=== PATIENT | male | born 1940 | race Caucasian/White ===

== ENCOUNTER 2016-09-18 09:39 | Emergency (ER) | payer MEDICARE, OTHER ==
--- NOTE | 2016-09-18 10:25 | ED ---
General Adult HPI - General Chief complaint: Upper Respiratory Infection Stated complaint: FLU LIKE SYMPTOMS Time Seen by Provider: 09/18/16 10:13 Source: patient, RN notes reviewed Mode of arrival: ambulatory Limitations: no limitations - History of Present Illness Initial comments: 76-year-old male present emergency department with chief complaint cough and congestion 2-3 days. Patient states he has sinus congestion or cough worse at nighttime. Patient states he has asthma but no increased shortness of breath. Denies any chest pain, fever or chills. Patient did not have flu vaccine this year. Patient denies any [id number] medications. Patient states that he' s had no sick contacts. He states that he was just concerned that his have a cold last couple days and that is having around people. - Related Data Home Medications Medication Instructions Recorded Confirmed Allopurinol [Zyloprim] 300 mg PO DAILY 11/30/14 09/18/16 Atenolol [Tenormin] 25 mg PO BID 11/30/14 09/18/16 Furosemide [Lasix] 40 mg PO DAILY 11/30/14 09/18/16 Isosorbide Mononitrate [Isosorbide 30 mg PO BID 11/30/14 09/18/16 Mononitrate ER] Lisinopril [Zestril] 5 mg PO DAILY 11/30/14 09/18/16 Potassium Chloride ER [K-Dur 10] 10 meq PO DAILY 11/30/14 09/18/16 Tamsulosin [Flomax] 0.4 mg PO DAILY 11/30/14 09/18/16 Finasteride [Proscar] 5 mg PO DAILY 09/18/16 09/18/16 Levothyroxine Sodium [Synthroid] 112 mcg PO DAILY 09/18/16 09/18/16 Previous Rx's Medication Instructions Recorded Azithromycin [Zithromax Z-pack] 0 mg PO DIRECTED #1 pack 09/18/16 Allergies Allergy/AdvReac Type Severity Reaction Status Date / Time Penicillins Allergy Unknown Verified 09/18/16 10:34 Review of Systems ROS Statement: Those systems with pertinent positive or pertinent negative responses have been documented in the HPI. ROS Other: All systems not noted in ROS Statement are negative. Past Medical History Past Medical History: Coronary Artery Disease (CAD), Hypertension, Myocardial Infarction ([place]), Thyroid Disorder History of Any Multi-Drug Resistant Organisms: None Reported Past Surgical History: Coronary Bypass/CABG Additional Past Surgical History / Comment(s): thyroid cancer removed Past Psychological History: Depression Smoking Status: Former smoker Past Alcohol Use History: None Reported Past Drug Use History: None Reported General Exam Limitations: no limitations General appearance: alert, in no apparent distress Head exam: Present: atraumatic, normocephalic, normal inspection Eye exam: Present: normal appearance, PERRL, EOMI. Absent: scleral icterus, conjunctival injection, periorbital swelling ENT exam: Present: mucous membranes dry, mucous membranes moist, TM's normal bilaterally, normal external ear exam. Absent: normal exam (Mild rhinorrhea), normal oropharynx (Some postnasal drainage noted) Neck exam: Present: normal inspection, full ROM. Absent: tenderness, meningismus, lymphadenopathy Respiratory exam: Present: normal lung sounds bilaterally. Absent: respiratory distress, wheezes, rales, rhonchi, stridor Cardiovascular Exam: Present: regular rate, normal rhythm, normal heart sounds. Absent: systolic murmur, diastolic murmur, rubs, gallop, clicks Neurological exam: Present: alert Skin exam: Present: warm, dry, intact, normal color. Absent: rash Course Vital Signs 09/18/16 09:53 Temperature 98.8 F Pulse Rate 67 Respiratory 20 Rate Blood Pressure 147/65 O2 Sat by Pulse 95 Oximetry Medical Decision Making - Medical Decision Making 76-year-old male present emergency department for cough and congestion. Patient 's chest x-ray shows acute bronchitis. Patient was placed on antibiotics at this time. Patient was given strict return parameters patient agreed to plan. - Lab Data Lab Results 09/18/16 Range/Units 10:27 Influenza Type A RNA Not Detected (Not Detectd) Influenza Type B (PCR) Not Detected (Not Detectd) Disposition Clinical Impression: Bronchitis, Sinus congestion Disposition: HOME SELF-CARE Condition: Stable Instructions: Acute Bronchitis (ED) Additional Instructions: Please return to the Emergency Department if symptoms worsen or any other concerns. Prescriptions: Azithromycin [Zithromax Z-pack] 0 mg PO DIRECTED #1 pack Time of Disposition: 11:21
--- NOTE | 2016-09-18 10:50 | XR ---
EXAMINATION TYPE: XR chest 2V DATE OF EXAM: 09/18/2016 10:39 AM COMPARISON: Prior chest x-ray November HISTORY: Cough and congestion, asthma TECHNIQUE: Frontal and lateral views of the chest are obtained. FINDINGS: There is no focal air space opacity, pleural effusion, or pneumothorax seen. Patchy basil ar density again noted and likely represents scarring as on prior. There is bronchial wall thickening . The cardiac silhouette size is stable and borderline enlarged. Prominent lung volumes suggest under lying COPD, blunting of the costophrenic angles is stable and may be due to hyperinflation. The osseo us structures are intact. IMPRESSION: Correlate for bronchitis. Follow-up as indicated.
[2016-09-18 11:39] VITALS: BP 142/65; PULSE 61; RESP 18; TEMP 96.7
== END 2016-09-18 11:46 | disposition home or self-care (01) ==
LOC: EC 09:39
DX: J20.9 Acute bronchitis, unspecified (principal); R09.81 Nasal congestion; I10 Essential (primary) hypertension; I25.10 Atherosclerotic heart disease of native coronary artery without angina pectoris; E07.9 Disorder of thyroid, unspecified; Z87.891 Personal history of nicotine dependence; Z79.899 Other long term (current) drug therapy; Z88.0 Allergy status to penicillin
CPT/HCPCS: 71020; 87502; 99283

== ENCOUNTER 2016-10-19 17:43 | Emergency (ER) | payer MEDICARE, OTHER ==
[2016-10-19 18:17] VITALS: BP 164/70; PULSE 74; RESP 18; TEMP 97.8
--- NOTE | 2016-10-19 18:25 | ED ---
General Adult HPI - General Chief complaint: Wound/Laceration Stated complaint: left arm bleeding, post op Time Seen by Provider: 10/19/16 18:17 Source: patient, RN notes reviewed Mode of arrival: wheelchair Limitations: no limitations - History of Present Illness Initial comments: 76-year-old male presents to the emergency Department chief complaint of skin tear to left wrist. Patient states when they were removing the tape in the IV to treat his skin tear to his left wrist. Patient states that he noticed some bleeding C thought that he should be evaluated. Patient denies any pain any passing redness surrounding the area. Patient states that he did not know how to care for it so he thought that he should be seen.Patient denies any recent fever, chills, shortness of breath, chest pain, back pain, abdominal pain, nausea vomiting, numbness or tingling, dysuria or hematuria, constipation or diarrhea, headaches or visual changes, or any other current symptoms. - Related Data Home Medications Medication Instructions Recorded Confirmed Allopurinol [Zyloprim] 300 mg PO DAILY 11/30/14 09/18/16 Atenolol [Tenormin] 25 mg PO BID 11/30/14 09/18/16 Furosemide [Lasix] 40 mg PO DAILY 11/30/14 09/18/16 Isosorbide Mononitrate [Isosorbide 30 mg PO BID 11/30/14 09/18/16 Mononitrate ER] Lisinopril [Zestril] 5 mg PO DAILY 11/30/14 09/18/16 Potassium Chloride ER [K-Dur 10] 10 meq PO DAILY 11/30/14 09/18/16 Tamsulosin [Flomax] 0.4 mg PO DAILY 11/30/14 09/18/16 Finasteride [Proscar] 5 mg PO DAILY 09/18/16 09/18/16 Levothyroxine Sodium [Synthroid] 112 mcg PO DAILY 09/18/16 09/18/16 Previous Rx's Medication Instructions Recorded Azithromycin [Zithromax Z-pack] 0 mg PO DIRECTED #1 pack 09/18/16 Allergies Allergy/AdvReac Type Severity Reaction Status Date / Time Penicillins Allergy Unknown Verified 10/19/16 17:48 Review of Systems ROS Statement: Those systems with pertinent positive or pertinent negative responses have been documented in the HPI. ROS Other: All systems not noted in ROS Statement are negative. Past Medical History Past Medical History: Coronary Artery Disease (CAD), Hypertension, Myocardial Infarction ([place]), Thyroid Disorder History of Any Multi-Drug Resistant Organisms: None Reported Past Surgical History: Coronary Bypass/CABG Additional Past Surgical History / Comment(s): thyroid cancer removed Past Psychological History: Depression Smoking Status: Former smoker Past Alcohol Use History: None Reported Past Drug Use History: None Reported General Exam Limitations: no limitations General appearance: alert, in no apparent distress Respiratory exam: Present: normal lung sounds bilaterally. Absent: respiratory distress, wheezes, rales, rhonchi, stridor Cardiovascular Exam: Present: regular rate, normal rhythm, normal heart sounds. Absent: systolic murmur, diastolic murmur, rubs, gallop, clicks Extremities exam: Present: normal inspection Neurological exam: Present: alert, oriented X3 Psychiatric exam: Present: normal affect, normal mood Skin exam: Present: warm, dry, other (She appears to have a 3 cm half [place]- type skin tear. There does not appear any signs of infection no active bleeding at this time.) Course Vital Signs 10/19/16 10/19/16 17:46 18:16 Temperature 98.1 F 97.8 F Pulse Rate 88 74 Respiratory 20 18 Rate Blood Pressure 139/65 164/70 O2 Sat by Pulse 98 97 Oximetry Medical Decision Making - Medical Decision Making 76-year-old male presents for skin tear to the left wrist. This time we did take the Tegaderm over the area. We did discuss what to watch for we did discuss care we did discuss alternate discussed return parameters. We discussed all the patient's questions. He stated he understood and is in agreement with plan. He will be discharged home. Disposition Clinical Impression: Tear of skin of left wrist Disposition: HOME SELF-CARE Condition: Stable Instructions: Skin Tear (ED) Additional Instructions: Please use medication as discussed. Please follow up with family doctor if symptoms have not improved over the next two days. Please return to the emergency room if your symptoms increase or worsen or for any other concerns. Referrals: Daniel Avila MD [Primary Care Provider] - 1-2 days Time of Disposition: 18:25
== END 2016-10-19 18:31 | disposition home or self-care (01) ==
LOC: EC 17:43
DX: S61.512A Laceration without foreign body of left wrist, initial encounter (principal); I25.10 Atherosclerotic heart disease of native coronary artery without angina pectoris; I10 Essential (primary) hypertension; I25.2 Old myocardial infarction; F32.9 Major depressive disorder, single episode, unspecified; Z87.891 Personal history of nicotine dependence; Z79.899 Other long term (current) drug therapy; Z88.0 Allergy status to penicillin; W45.8XXA Other foreign body or object entering through skin, initial encounter; Y83.8 Other surgical procedures as the cause of abnormal reaction of the patient, or of later complication, without mention of misadventure at the time of the procedure; Y92.009 Unspecified place in unspecified non-institutional (private) residence as the place of occurrence of the external cause
CPT/HCPCS: 99283

== ENCOUNTER 2016-10-20 16:54 | Emergency (ER) | payer MEDICARE, OTHER ==
[2016-10-20 17:12] VITALS: BP 120/57; PULSE 69; RESP 20; TEMP 98.6
[2016-10-20] MEDS ORDERED: TOPICAL SKIN ADHESIVE 1 EACH AMP TOPICAL ONE (17:27)
[2016-10-20] MEDS ORDERED: GELATIN SPONGE,ABSORB (SMALL) 1 EACH SPONGE TOPICAL STA (17:28)
--- NOTE | 2016-10-20 17:38 | ED ---
Wound/Laceration HPI - General Chief Complaint: Wound/Laceration Stated Complaint: Post Surgical Wound Still Bleeding Time Seen by Provider: 10/20/16 17:22 Source: patient, RN notes reviewed Mode of arrival: ambulatory Limitations: no limitations - History of Present Illness Initial Comments: Is a 68-year-old male presents emergency Department with chief complaint of a skin tear on his left forearm. Patient reports that he had an IV and the IV was removed and the cause a skin tear. Patient states that he was here yesterday and he placed a Tegaderm. Patient is concerned because there is been bleeding through the Tegaderm. Patient denies any fever or chills or any other associated symptoms. Patient is here to have his wound and redressed.Patient denies any recent fever, chills, shortness of breath, chest pain, back pain, abdominal pain, nausea vomiting, numbness or tingling, dysuria or hematuria, constipation or diarrhea, headaches or visual changes, or any other current symptoms - Related Data Home Medications Medication Instructions Recorded Confirmed Allopurinol [Zyloprim] 300 mg PO DAILY 11/30/14 10/20/16 Lisinopril [Zestril] 5 mg PO DAILY 11/30/14 10/20/16 Potassium Chloride ER [K-Dur 10] 10 meq PO DAILY 11/30/14 10/20/16 Tamsulosin [Flomax] 0.4 mg PO DAILY 11/30/14 10/20/16 Finasteride [Proscar] 5 mg PO DAILY 09/18/16 10/20/16 Levothyroxine Sodium [Synthroid] 112 mcg PO DAILY 09/18/16 10/20/16 Allergies Allergy/AdvReac Type Severity Reaction Status Date / Time Penicillins Allergy Unknown Verified 10/19/16 17:48 Review of Systems ROS Statement: Those systems with pertinent positive or pertinent negative responses have been documented in the HPI. ROS Other: All systems not noted in ROS Statement are negative. Past Medical History Past Medical History: Coronary Artery Disease (CAD), Hypertension, Myocardial Infarction ([place]), Thyroid Disorder History of Any Multi-Drug Resistant Organisms: None Reported Past Surgical History: Coronary Bypass/CABG Additional Past Surgical History / Comment(s): thyroid cancer removed, circumcision Past Psychological History: Depression Smoking Status: Former smoker Past Alcohol Use History: None Reported Past Drug Use History: None Reported General Exam - General Exam Comments Initial Comments: This is a 76-year-old male. No distress. Limitations: no limitations General appearance: alert, in no apparent distress Head exam: Present: atraumatic, normocephalic, normal inspection Eye exam: Present: normal appearance, PERRL, EOMI. Absent: scleral icterus, conjunctival injection, periorbital swelling ENT exam: Present: normal exam, mucous membranes moist Neck exam: Present: normal inspection. Absent: tenderness, meningismus, lymphadenopathy Respiratory exam: Present: normal lung sounds bilaterally. Absent: respiratory distress, wheezes, rales, rhonchi, stridor Cardiovascular Exam: Present: regular rate, normal rhythm, normal heart sounds. Absent: systolic murmur, diastolic murmur, rubs, gallop, clicks GI/Abdominal exam: Present: soft, normal bowel sounds. Absent: distended, tenderness, guarding, rebound, rigid Extremities exam: Present: normal inspection, full ROM, normal capillary refill , other (3 cm skin tear over the left posterior forearm.). Absent: tenderness, pedal edema, joint swelling, calf tenderness Back exam: Present: normal inspection Neurological exam: Present: alert, oriented X3, CN II-XII intact Psychiatric exam: Present: normal affect, normal mood Skin exam: Present: warm, dry, intact, normal color. Absent: rash Course Vital Signs 10/20/16 17:08 Temperature 98.6 F Pulse Rate 69 Respiratory 20 Rate Blood Pressure 120/57 O2 Sat by Pulse 97 Oximetry Medical Decision Making - Medical Decision Making Is a pleasant 76-year-old male chief complaint of a skin tear after his IV dressing was pulled. Patient was seen in emergency department yesterday and was given Tegaderm. Patient reports he is concerned because he still sees it's bleeding underneath the Tegaderm. Patient Tegaderm was gently removed. Skin tear was closed with Dermabond and a piece of Gelfoam as well. Patient was wrapped and acrylics gauze. Patient was advised to monitor for any signs of infection over the area. Patient agrees with treatment plan will comply. Patient tolerated the procedure well. Patient understands return parameters. Disposition Clinical Impression: Skin tear of forearm without complication Disposition: HOME SELF-CARE Condition: Good Instructions: Skin Tear (ED) Additional Instructions: Keep the wound covered for the next 48 hours. Whenever you're sleeping keep the wound also covered in case he may rip it. Allow the Dermabond to follow-up on its own. Gelfoam can also come off a change dressing in 2 days. Return to the emergency department if any alarming signs or symptoms occur. Referrals: Daniel Avila MD [Primary Care Provider] - 1-2 days Time of Disposition: 17:52
== END 2016-10-20 18:00 | disposition home or self-care (01) ==
LOC: EC 16:54
DX: S51.812A Laceration without foreign body of left forearm, initial encounter (principal); I25.10 Atherosclerotic heart disease of native coronary artery without angina pectoris; I10 Essential (primary) hypertension; I25.2 Old myocardial infarction; E07.9 Disorder of thyroid, unspecified; F32.9 Major depressive disorder, single episode, unspecified; Z85.850 Personal history of malignant neoplasm of thyroid; Z87.891 Personal history of nicotine dependence; Z79.899 Other long term (current) drug therapy; Z88.0 Allergy status to penicillin; Y83.8 Other surgical procedures as the cause of abnormal reaction of the patient, or of later complication, without mention of misadventure at the time of the procedure
CPT/HCPCS: 99283

== ENCOUNTER 2016-11-21 19:40 | Emergency (ER) | payer MEDICARE, OTHER ==
[2016-11-21 20:23] VITALS: BP 159/71; PULSE 83; RESP 18; TEMP 97.9
--- NOTE | 2016-11-21 20:46 | ED ---
General Adult HPI - General Chief complaint: Extremity Injury, Lower Stated complaint: Knee Pain Time Seen by Provider: 11/21/16 20:11 Source: patient, RN notes reviewed, old records reviewed Mode of arrival: wheelchair Limitations: no limitations - History of Present Illness Initial comments: Patient is a 68-year-old male presenting to emergency Department chief complaint of chronic left shoulder and chronic knee pain. Patient reports that over the past days noticed occasional numbness or tingling in his feet and toes. Patient denies any posterior calf pain or significant swelling. Patient reports that he's had this pain off and on for quite some time. Patient reports that when he walks occasionally get a shooting pain that goes down the leg to his foot. Patient reports he is a nondiabetic. Denies any other significant history. - Related Data Home Medications Medication Instructions Recorded Confirmed Allopurinol [Zyloprim] 300 mg PO DAILY 11/30/14 10/20/16 Lisinopril [Zestril] 5 mg PO DAILY 11/30/14 10/20/16 Potassium Chloride ER [K-Dur 10] 10 meq PO DAILY 11/30/14 10/20/16 Tamsulosin [Flomax] 0.4 mg PO DAILY 11/30/14 10/20/16 Finasteride [Proscar] 5 mg PO DAILY 09/18/16 10/20/16 Levothyroxine Sodium [Synthroid] 112 mcg PO DAILY 09/18/16 10/20/16 Previous Rx's Medication Instructions Recorded HYDROcodone/APAP 5-325MG [[place] 1 tab PO Q6HR PRN #15 tab 11/21/16 5-325] Ibuprofen [Motrin] 600 mg PO Q8HR PRN #20 tab 11/21/16 Allergies Allergy/AdvReac Type Severity Reaction Status Date / Time Penicillins Allergy Unknown Verified 10/19/16 17:48 Review of Systems ROS Statement: Those systems with pertinent positive or pertinent negative responses have been documented in the HPI. ROS Other: All systems not noted in ROS Statement are negative. Past Medical History Past Medical History: Coronary Artery Disease (CAD), Hypertension, Myocardial Infarction ([place]), Thyroid Disorder History of Any Multi-Drug Resistant Organisms: None Reported Past Surgical History: Coronary Bypass/CABG Additional Past Surgical History / Comment(s): thyroid cancer removed, circumcision Past Psychological History: Depression Smoking Status: Former smoker Past Alcohol Use History: None Reported Past Drug Use History: None Reported General Exam - General Exam Comments Initial Comments: Well-appearing 76-year-old male. No acute distress. Limitations: no limitations General appearance: alert, in no apparent distress Head exam: Present: atraumatic, normocephalic, normal inspection Eye exam: Present: normal appearance, PERRL, EOMI. Absent: scleral icterus, conjunctival injection, periorbital swelling ENT exam: Present: normal exam, mucous membranes moist Neck exam: Present: normal inspection. Absent: tenderness, meningismus, lymphadenopathy Respiratory exam: Present: normal lung sounds bilaterally. Absent: respiratory distress, wheezes, rales, rhonchi, stridor Cardiovascular Exam: Present: regular rate GI/Abdominal exam: Present: soft, normal bowel sounds. Absent: distended, tenderness, guarding, rebound, rigid Extremities exam: Present: normal inspection, full ROM, normal capillary refill. Absent: tenderness, pedal edema, joint swelling, calf tenderness Back exam: Present: normal inspection Neurological exam: Present: alert, oriented X3, CN II-XII intact Psychiatric exam: Present: normal affect, normal mood Skin exam: Present: warm, dry, intact, normal color. Absent: rash Course Vital Signs 11/21/16 20:12 Temperature 97.9 F Pulse Rate 83 Respiratory 18 Rate Blood Pressure 159/71 O2 Sat by Pulse 96 Oximetry Medical Decision Making - Medical Decision Making Patient is a 68-year-old male presenting to emergency Department chief complaint of chronic left shoulder and chronic knee pain. Patient reports that over the past days noticed occasional numbness or tingling in his feet and toes. Patient denies any posterior calf pain or significant swelling. Patient reports that he's had this pain off and on for quite some time. Patient reports that when he walks occasionally get a shooting pain that goes down the leg to his foot. Patient reports he is a nondiabetic. Denies any other significant history. Patient knee and shoulder xray show chronic degenerative changees. No calf pain, and patient has full range of motion of arms, legs, and feet. No significant swelling or erythema. PAtient will be discharged with pain medciation, and advised to follow up with PCP, orthpedic physician and neurologist. Return parameters discussed. - Radiology Data Radiology results: report reviewed All images reviewed, negative for acute fracture or dislocation. Disposition Clinical Impression: Degenerative arthritis of knee, bilateral, Neuropathy of lower extremity, Left shoulder pain Disposition: HOME SELF-CARE Condition: Good Instructions: Knee Pain (ED) Additional Instructions: Is advised to rest, ice, elevate extremities. Take me pain medications as directed. Return to the emergency department if any alarming signs or symptoms occur. Prescriptions: HYDROcodone/APAP 5-325MG [[place] 5-325] 1 tab PO Q6HR PRN #15 tab PRN Reason: Pain Ibuprofen [Motrin] 600 mg PO Q8HR PRN #20 tab PRN Reason: Pain Referrals: Daniel Avila MD [Primary Care Provider] - 1-2 days Arnulfo Clark MD [STAFF PHYSICIAN] - 1-2 days Time of Disposition: 21:21
--- NOTE | 2016-11-21 21:35 | XR ---
EXAMINATION TYPE: XR shoulder complete LT DATE OF EXAM: 11/21/2016 COMPARISON: NONE HISTORY: Shoulder pain TECHNIQUE: 3 views FINDINGS: I see no fracture nor dislocation. Glenohumeral joint is intact. IMPRESSION: Negative left shoulder exam.
--- NOTE | 2016-11-21 21:36 | XR ---
EXAMINATION TYPE: XR knee limited bilateral DATE OF EXAM: 11/21/2016 COMPARISON: NONE HISTORY: Knee pain TECHNIQUE: 3 views FINDINGS: There is spurring at the patellofemoral joint. There is calcification in the lateral menisc us. I see no significant joint space narrowing. There is a small knee joint effusion. There is mild v ascular calcification. IMPRESSION: Mild chondrocalcinosis. Small joint effusion. No fracture seen. No significant joint spac e narrowing.
== END 2016-11-21 21:40 | disposition home or self-care (01) ==
LOC: EC 19:40
DX: M17.0 Bilateral primary osteoarthritis of knee (principal); G57.90 Unspecified mononeuropathy of unspecified lower limb; M25.512 Pain in left shoulder; I25.10 Atherosclerotic heart disease of native coronary artery without angina pectoris; I10 Essential (primary) hypertension; I25.2 Old myocardial infarction; E07.9 Disorder of thyroid, unspecified; Z85.850 Personal history of malignant neoplasm of thyroid; Z95.1 Presence of aortocoronary bypass graft; Z88.0 Allergy status to penicillin; Z79.899 Other long term (current) drug therapy; Z87.891 Personal history of nicotine dependence
CPT/HCPCS: 99284

== ENCOUNTER 2017-05-18 13:37 | Day surgery (SDC) | payer MEDICARE, OTHER ==
[2017-05-16 10:44] VITALS: BMI 31.7
[~2017-05-18 13:37] MED LIST: DEXAMETHASONE SOD PHOSPHATE 4 MG/ML 1 ML VIAL IV ONE; FAMOTIDINE 20 MG/2 ML VIAL IV ONE; LACTATED RINGERS 1,000 ML IV SCH; ONDANSETRON 4 MG/2 ML VIAL IVP ONE; Pre Op ABX Message 1 EACH MISC MISCELLANE ONE; fentaNYL (PF) 50 MCG/ML 2 ML AMP IV PRN
[2017-05-18] MEDS: OXYMETAZOLINE 0.05% NASL SPRAY 1 SPRAY BOTTLE NASAL ONE ×5 (14:20→14:42)
[2017-05-18] MEDS ORDERED: LIDOCAINE 1% 20 ML VIAL (10MG/ML) FOR IV START INTRADERMA ONE (14:25)
[2017-05-18] MEDS ORDERED: DEXAMETHASONE SOD PHOS (MDV) 100 MG/10 ML VIAL IV ONE (14:35)
[2017-05-18] MEDS ORDERED: SUCCINYLCHOLINE CHLORIDE 100 MG/5 ML SYR IV ONE (16:24)
[2017-05-18] MEDS ORDERED: MIDAZOLAM 2 MG/2 ML VIAL ONE (16:24)
[2017-05-18] MEDS ORDERED: fentaNYL (PF) 50 MCG/ML 2 ML AMP ONE (16:24)
[2017-05-18] MEDS ORDERED: LIDOCAINE 1% INJ 10MG/ML (20 ML MDV) ONE (16:24)
[2017-05-18] MEDS ORDERED: PROPOFOL 10 MG/ML 20 ML VIAL IV ONE (16:24)
[2017-05-18] MEDS ORDERED: CIPROFLOXACIN-DEXAMETH 0.3-0.1% DROPS 7.5 ML BTL BOTH EARS ONE (16:33)
[2017-05-18] MEDS ORDERED: LIDOCAINE-EPINEPHRINE (PF) 5 ML AMPUL SQ ONE ×2 (16:33)
[2017-05-18] MEDS ORDERED: BACITRACIN 500 UNIT/GM OINT 28.4 GM TUBE TOPICAL ONE (16:59)
[2017-05-18 17:23] VITALS: TEMP 97.4
--- NOTE | 2017-05-18 17:28 | P.OP ---
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 Repeat tube placement is recommended and the station tuboplasty is also recommended as he's had persistent eustachian tube dysfunction for many years. The patient also has hypertrophy of the inferior turbinates posteriorly crowding the anterior wall of the eustachian tube. A resection of these bilateral turbinates is recommended along with the eustachian tuboplasty and tube placement. All risks , benefits, and alternative therapies were discussed. Consent was obtained and all questions were answered. Operative Findings: Bilateral middle ear effusion with myringosclerosis seen. Patient has a large amount of hypertrophy of the inferior turbinate posteriorly causing crowding of the eustachian tube orifice. Station too orifice also had adhesions. Description of Procedure: This patient was taken to the operative room and placed in the supine position. A general inhalation anesthetic was administered to the patient by mask and subsequently intubated with a cuffed endotracheal tube by the department of anesthesia with a functioning IV line in place. The patient was monitored throughout the entire case by the department of anesthesia. Both ears were visualized with a 2 and 50 mm Zeiss microscope and cerumen and epithelial debris was removed from the external auditory canals. Both tympanic membranes were retracted and were found be sclerotic. Tympanostomy incisions were made inferiorly and fluid was suctioned. Ultraseal tubes were placed and the patient tolerated this procedure well. Attention was then paid to the nose where the inferior turbinates posteriorly were injected with lidocaine 1% with epinephrine 1 100,000. 10 minutes were allowed wait for full vasoconstrictive effects to take place. A 2 mm blade utilizing a microdebrider blade was placed into the posterior portion of the inferior turbinates and a submucosal resection was performed bilaterally. We then did outfracturing compression with a SingOn nasal elevator. After he freed up that tissue we then endoscopically with use of a 0 Hand rosa scope placed and a clear balloon in both eustachian tube orifices broke up the adhesions and ballooned open the eustachian tubes bilaterally. We did evaluate the nasopharyngeal anatomy and the ballooning went well. Is to mentation was removed the patient tolerated this well and follow-up will be in the office in 1 week for recheck and the patient is to contact me if any from should arise.
[2017-05-18 17:48] VITALS: RESP 16
[2017-05-18 18:15] VITALS: BP 163/78; PULSE 75
== END 2017-05-18 19:02 | disposition home or self-care (01) ==
LOC: OR 13:37
PROVIDERS: ATTEND Otolaryngology
DX: H65.493 Other chronic nonsuppurative otitis media, bilateral (principal); J34.3 Hypertrophy of nasal turbinates; J34.89 Other specified disorders of nose and nasal sinuses; H69.93 Unspecified Eustachian tube disorder, bilateral; H93.19 Tinnitus, unspecified ear; H90.0 Conductive hearing loss, bilateral; M10.9 Gout, unspecified; J45.909 Unspecified asthma, uncomplicated; J43.9 Emphysema, unspecified; E78.00 Pure hypercholesterolemia, unspecified; J30.1 Allergic rhinitis due to pollen; I11.0 Hypertensive heart disease with heart failure; I50.9 Heart failure, unspecified; I25.10 Atherosclerotic heart disease of native coronary artery without angina pectoris; Z95.1 Presence of aortocoronary bypass graft; Z82.49 Family history of ischemic heart disease and other diseases of the circulatory system; Z87.891 Personal history of nicotine dependence; Z88.0 Allergy status to penicillin; Z79.02 Long term (current) use of antithrombotics/antiplatelets; Z79.51 Long term (current) use of inhaled steroids; Z92.3 Personal history of irradiation; Z85.850 Personal history of malignant neoplasm of thyroid; I25.2 Old myocardial infarction
CPT/HCPCS: 84132; 69436; 30140; 69949; J2250; J2405; J2001; J3010; J1100; J0330; J2704

== ENCOUNTER 2017-11-02 20:06 | Emergency (ER) | payer OTHER, MEDICARE ==
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
[2017-11-02 22:43] VITALS: BP 170/80; PULSE 76; RESP 16; TEMP 97
== END 2017-11-02 22:40 | disposition home or self-care (01) ==
LOC: EC 20:06
DX: M19.011 Primary osteoarthritis, right shoulder (principal); E07.9 Disorder of thyroid, unspecified; Z85.850 Personal history of malignant neoplasm of thyroid; Z85.828 Personal history of other malignant neoplasm of skin; Z95.1 Presence of aortocoronary bypass graft; Z87.891 Personal history of nicotine dependence; Z79.899 Other long term (current) drug therapy; Z88.0 Allergy status to penicillin; V43.62XA Car passenger injured in collision with other type car in traffic accident, initial encounter
CPT/HCPCS: 99284

== ENCOUNTER 2017-11-23 23:28 | Emergency (ER) | payer MEDICARE, OTHER ==
--- NOTE | 2017-11-23 23:48 | ED ---
General Adult HPI - General Chief complaint: Shortness of Breath Stated complaint: Poss mental health, pain? Time Seen by Provider: 11/23/17 23:43 Source: patient Mode of arrival: ambulatory Limitations: no limitations - History of Present Illness Initial comments: This is a 37-year-old male to the ER for evaluation of not feeling well weakness. Patient has some mild shortness of breath no pain, patient states he feels very fatigued and he was sleeping very weak. Denies travel history or sick contacts no pain no fevers. No cough or congestion no change in medications - Related Data Home Medications Medication Instructions Recorded Confirmed Allopurinol [Zyloprim] 300 mg PO DAILY 11/30/14 11/02/17 Potassium Chloride ER [K-Dur 10] 10 meq PO DAILY 11/30/14 11/02/17 Tamsulosin [Flomax] 0.4 mg PO DAILY 11/30/14 11/02/17 Finasteride [Proscar] 5 mg PO DAILY 09/18/16 11/02/17 Levothyroxine Sodium [Synthroid] 112 mcg PO DAILY 09/18/16 11/02/17 Albuterol Inhaler [Ventolin Hfa 2 puff INHALATION RT-Q6H PRN 11/02/17 11/02/17 Inhaler] Albuterol Nebulized [Ventolin 2.5 mg INHALATION RT-Q6H PRN 11/02/17 11/02/17 Nebulized] Previous Rx's Medication Instructions Recorded Albuterol Sulfate [Proair Hfa] 1 - 2 puff INHALATION Q4H PRN #1 11/24/17 inhaler Azithromycin [Zithromax Z-pack] 0 mg PO DIRECTED #1 pack 11/24/17 predniSONE 50 mg PO DAILY #5 tab 11/24/17 Allergies Allergy/AdvReac Type Severity Reaction Status Date / Time amoxicillin Allergy Unknown Verified 11/23/17 23:39 Childhood Penicillins Allergy Unknown Verified 11/23/17 23:39 Childhood Review of Systems ROS Statement: Those systems with pertinent positive or pertinent negative responses have been documented in the HPI. ROS Other: All systems not noted in ROS Statement are negative. Past Medical History Past Medical History: Coronary Artery Disease (CAD), Cancer, Hypertension, Myocardial Infarction ([place]), Prostate Disorder, Thyroid Disorder Additional Past Medical History / Comment(s): hx thyroid cancer, skin cancer Last Myocardial Infarction Date:: History of Any Multi-Drug Resistant Organisms: None Reported Past Surgical History: Coronary Bypass/CABG Additional Past Surgical History / Comment(s): thyroid cancer removed, circumcision, kylie cataracts with lens implants, skin cancer removal Past Anesthesia/Blood Transfusion Reactions: No Reported Reaction Past Psychological History: Depression Smoking Status: Former smoker Past Alcohol Use History: None Reported Past Drug Use History: None Reported - Past Family History Mother Family Medical History: No Reported History General Exam Limitations: no limitations General appearance: alert, in no apparent distress Head exam: Present: atraumatic, normocephalic, normal inspection Eye exam: Present: normal appearance, PERRL, EOMI. Absent: scleral icterus, conjunctival injection, periorbital swelling ENT exam: Present: normal exam, mucous membranes moist Neck exam: Present: normal inspection. Absent: tenderness, meningismus, lymphadenopathy Respiratory exam: Present: normal lung sounds bilaterally. Absent: respiratory distress, wheezes, rales, rhonchi, stridor Cardiovascular Exam: Present: regular rate, normal rhythm, normal heart sounds. Absent: systolic murmur, diastolic murmur, rubs, gallop, clicks GI/Abdominal exam: Present: soft, normal bowel sounds. Absent: distended, tenderness, guarding, rebound, rigid Extremities exam: Present: normal inspection, full ROM, normal capillary refill. Absent: tenderness, pedal edema, joint swelling, calf tenderness Back exam: Present: normal inspection Neurological exam: Present: alert, oriented X3, CN II-XII intact Psychiatric exam: Present: normal affect, normal mood Skin exam: Present: warm, dry, intact, normal color. Absent: rash Course Vital Signs 11/23/17 11/24/17 11/24/17 23:33 00:15 00:37 Temperature 98.2 F Pulse Rate 63 61 Respiratory 18 19 19 Rate Blood Pressure 170/71 155/70 O2 Sat by Pulse 96 98 Oximetry 11/24/17 11/24/17 11/24/17 01:33 01:34 01:53 Temperature Pulse Rate 83 57 L 57 L Respiratory 19 Rate Blood Pressure 162/70 O2 Sat by Pulse 98 Oximetry 11/24/17 01:54 Temperature 97.9 F Pulse Rate 60 Respiratory 18 Rate Blood Pressure 140/60 O2 Sat by Pulse 100 Oximetry EKG Findings - EKG Comments: EKG Findings:: EKG shows sinus bradycardia rate of 59, NV 208, QRS 94, QTc 465 Medical Decision Making - Medical Decision Making 77 male the ER for evaluation of cough congestion some weakness. Patient looks like he has bronchitis. Patient can be discharged home no acute distress - Lab Data Result diagrams: 11/23/17 23:53 11/23/17 23:53 Lab Results 11/23/17 11/23/17 11/23/17 Range/Units 23:53 23:53 23:53 WBC 3.8 (3.8-10.6) k/uL RBC 3.75 L (4.30-5.90) m/uL Hgb 10.9 L (13.0-17.5) gm/dL Hct 31.4 L (39.0-53.0) % MCV 83.7 (80.0-100.0) fL MCH 29.1 (25.0-35.0) pg MCHC 34.8 (31.0-37.0) g/dL RDW 22.0 H (11.5-15.5) % Plt Count 174 (150-450) k/uL Neutrophils % 54 % Lymphocytes % 29 % Monocytes % 12 % Eosinophils % 1 % Basophils % 0 % Neutrophils # 2.1 (1.3-7.7) k/uL Lymphocytes # 1.1 (1.0-4.8) k/uL Monocytes # 0.4 (0-1.0) k/uL Eosinophils # 0.1 (0-0.7) k/uL Basophils # 0.0 (0-0.2) k/uL Anisocytosis Moderate PT (9.0-12.0) sec INR (<1.2) APTT (22.0-30.0) sec Sodium 138 (137-145) mmol/L Potassium 3.5 (3.5-5.1) mmol/L Chloride 96 L (98-107) mmol/L Carbon Dioxide 32 H (22-30) mmol/L Anion Gap 10 mmol/L BUN 30 H (9-20) mg/dL Creatinine 1.10 (0.66-1.25) mg/dL Est GFR (CKD-EPI)AfAm 74 (>60 ml/min/1.73 sqM) Est GFR (CKD-EPI)NonAf 64 (>60 ml/min/1.73 sqM) Glucose 185 H (74-99) mg/dL Calcium 9.3 (8.4-10.2) mg/dL Magnesium 1.8 (1.6-2.3) mg/dL Total Bilirubin 0.5 (0.2-1.3) mg/dL AST 25 (17-59) U/L ALT 30 (21-72) U/L Alkaline Phosphatase 97 (38-126) U/L Total Creatine Kinase 58 (55-170) U/L CK-MB (CK-2) 0.8 (0.0-2.4) ng/mL CK-MB (CK-2) Rel Index 1.4 Troponin I <0.012 (0.000-0.034) ng/mL NT-Pro-B Natriuret Pep pg/mL Total Protein 6.1 L (6.3-8.2) g/dL Albumin 3.8 (3.5-5.0) g/dL 11/23/17 11/23/17 Range/Units 23:53 23:53 WBC (3.8-10.6) k/uL RBC (4.30-5.90) m/uL Hgb (13.0-17.5) gm/dL Hct (39.0-53.0) % MCV (80.0-100.0) fL MCH (25.0-35.0) pg MCHC (31.0-37.0) g/dL RDW (11.5-15.5) % Plt Count (150-450) k/uL Neutrophils % % Lymphocytes % % Monocytes % % Eosinophils % % Basophils % % Neutrophils # (1.3-7.7) k/uL Lymphocytes # (1.0-4.8) k/uL Monocytes # (0-1.0) k/uL Eosinophils # (0-0.7) k/uL Basophils # (0-0.2) k/uL Anisocytosis PT 10.3 (9.0-12.0) sec INR 1.1 (<1.2) APTT 22.8 (22.0-30.0) sec Sodium (137-145) mmol/L Potassium (3.5-5.1) mmol/L Chloride (98-107) mmol/L Carbon Dioxide (22-30) mmol/L Anion Gap mmol/L BUN (9-20) mg/dL Creatinine (0.66-1.25) mg/dL Est GFR (CKD-EPI)AfAm (>60 ml/min/1.73 sqM) Est GFR (CKD-EPI)NonAf (>60 ml/min/1.73 sqM) Glucose (74-99) mg/dL Calcium (8.4-10.2) mg/dL Magnesium (1.6-2.3) mg/dL Total Bilirubin (0.2-1.3) mg/dL AST (17-59) U/L ALT (21-72) U/L Alkaline Phosphatase (38-126) U/L Total Creatine Kinase (55-170) U/L CK-MB (CK-2) (0.0-2.4) ng/mL CK-MB (CK-2) Rel Index Troponin I (0.000-0.034) ng/mL NT-Pro-B Natriuret Pep 552 pg/mL Total Protein (6.3-8.2) g/dL Albumin (3.5-5.0) g/dL - Radiology Data Radiology results: report reviewed (Chest x-rays negative), image reviewed Disposition Clinical Impression: Acute exacerbation of chronic obstructive airways disease Disposition: HOME SELF-CARE Condition: Good Instructions: Acute Bronchitis (ED) Prescriptions: Albuterol Sulfate [Proair Hfa] 1 - 2 puff INHALATION Q4H PRN #1 inhaler PRN Reason: Shortness Of Breath Azithromycin [Zithromax Z-pack] 0 mg PO DIRECTED #1 pack predniSONE 50 mg PO DAILY #5 tab Is patient prescribed a controlled substance at d/c from ED?: No Referrals: Daniel Avila MD [Primary Care Provider] - 1-2 days
[2017-11-24 00:07] LABS: Anisocytosis Moderate; Basophils % (A) 0 %; Eosinophils # (A) 0.1 k/uL (0-0.7); Eosinophils % (A) 1 %; HCT 31.4 % (39.0-53.0); HGB 10.9 gm/dL (13.0-17.5); Lymphocytes # (A) 1.1 k/uL (1.0-4.8); Lymphocytes % (A) 29 %; MCH 29.1 pg (25.0-35.0); MCHC 34.8 g/dL (31.0-37.0); MCV 83.7 fL (80.0-100.0); Mean Platelet Volume 7.7; Monocytes # (A) 0.4 k/uL (0-1.0); Monocytes % (A) 12 %; Neutrophils # (A) 2.1 k/uL (1.3-7.7); Neutrophils % (A) 54 %; Platelet Count 174 k/uL (150-450); RBC 3.75 m/uL (4.30-5.90); WBC 3.8 k/uL (3.8-10.6)
[2017-11-24 00:15] LABS: INR 1.1 (<1.2); Partial Thromboplastin Time 22.8 sec (22.0-30.0); Prothrombin Time 10.3 sec (9.0-12.0)
[2017-11-24 00:16] LABS: Albumin 3.8 g/dL (3.5-5.0); Calcium 9.3 mg/dL (8.4-10.2); Magnesium 1.8 mg/dL (1.6-2.3); Potassium 3.5 mmol/L (3.5-5.1); Total Bilirubin 0.5 mg/dL (0.2-1.3); Total Protein 6.1 g/dL (6.3-8.2)
[2017-11-24 00:26] LABS: Creatine Kinase 58 U/L (55-170)
[2017-11-24 00:39] LABS: Creatine Kinase MB 0.8 ng/mL (0.0-2.4); Troponin I <0.012 ng/mL (0.000-0.034)
--- NOTE | 2017-11-24 00:44 | XR ---
EXAMINATION TYPE: XR chest 2V DATE OF EXAM: 11/24/2017 COMPARISON: 09/18/2016 HISTORY: Short of breath TECHNIQUE: Frontal and lateral views of the chest are obtained. FINDINGS: There is some mild linear density at the lung bases. There is no heart failure. Thoracic a desirae is atheromatous. There are chest leads. There is no pleural effusion. IMPRESSION: There is some patchy scarring and atelectasis at the lung bases similar to old exam. No heart failure. There is probably COPD.
[2017-11-24] MEDS ORDERED: IPRATROPIUM-ALBUTEROL 3 ML NEB INHALATION STA (01:22)
[2017-11-24] MEDS ORDERED: methylPREDNISolone SOD SUCCI 125 MG/2 ML VIAL IV STA (01:22)
[2017-11-24] MEDS ORDERED: AZITHROMYCIN 500 MG in DEXTROSE 5% IN WATER 250 ML IVPB STA ×2 (01:24)
[2017-11-24] MEDS ORDERED: AZITHROMYCIN 500 MG TAB PO STA (01:48)
[2017-11-24 01:56] VITALS: BP 140/60; PULSE 60; RESP 18; TEMP 97.9
== END 2017-11-24 01:55 | disposition home or self-care (01) ==
LOC: EC 23:28
DX: J44.1 Chronic obstructive pulmonary disease with (acute) exacerbation (principal); I25.10 Atherosclerotic heart disease of native coronary artery without angina pectoris; I25.2 Old myocardial infarction; Z87.438 Personal history of other diseases of male genital organs; Z85.850 Personal history of malignant neoplasm of thyroid; Z85.828 Personal history of other malignant neoplasm of skin; Z95.1 Presence of aortocoronary bypass graft; Z87.891 Personal history of nicotine dependence; Z79.899 Other long term (current) drug therapy; Z88.0 Allergy status to penicillin
CPT/HCPCS: 36415; 94640; 93005; 83880; 80053; 82550; 82553; 83735; 84484; 85025; 85610; 85730; 71046; 99285; 96374; J2930

== ENCOUNTER 2017-12-23 10:50 | Emergency (ER) | payer MEDICARE, OTHER ==
[2017-12-23] MEDS ORDERED: SODIUM CHLORIDE 0.9% 500 ML IV STA (11:23)
--- NOTE | 2017-12-23 11:28 | ED ---
Weakness HPI - General Chief complaint: Weakness Stated complaint: Not Feeling Well Time Seen by Provider: 12/23/17 11:16 Source: patient Mode of arrival: ambulatory Limitations: no limitations - History of Present Illness Initial comments: 77-year-old male patient presents the emergency department today for evaluation of generalized weakness. Patient states that he started to feel weak and tired yesterday. Patient states that he stayed in bed all day which is unusual for him. States that he has been mildly short of breath with this and has been coughing. Patient states he feels like there is sputum in his chest is unable to cough it up. States he is having some mild midepigastric abdominal pain. He denies any fevers or chills. Denies any swelling. Patient denies any recent rash, fever, chills, chest pain, nausea, vomiting, diarrhea, constipation, back pain, numbness, tingling, dizziness, weakness, hematuria, dysuria, urinary urgency, urinary frequency, headache, visual changes, or any other complaints. - Related Data Home Medications Medication Instructions Recorded Confirmed Allopurinol [Zyloprim] 300 mg PO DAILY 11/30/14 11/02/17 Potassium Chloride ER [K-Dur 10] 10 meq PO DAILY 11/30/14 11/02/17 Tamsulosin [Flomax] 0.4 mg PO DAILY 11/30/14 11/02/17 Finasteride [Proscar] 5 mg PO DAILY 09/18/16 11/02/17 Levothyroxine Sodium [Synthroid] 112 mcg PO DAILY 09/18/16 11/02/17 Albuterol Inhaler [Ventolin Hfa 2 puff INHALATION RT-Q6H PRN 11/02/17 11/02/17 Inhaler] Albuterol Nebulized [Ventolin 2.5 mg INHALATION RT-Q6H PRN 11/02/17 11/02/17 Nebulized] Previous Rx's Medication Instructions Recorded Albuterol Sulfate [Proair Hfa] 1 - 2 puff INHALATION Q4H PRN #1 11/24/17 inhaler Azithromycin [Zithromax Z-pack] 0 mg PO DIRECTED #1 pack 11/24/17 predniSONE 50 mg PO DAILY #5 tab 11/24/17 Allergies Allergy/AdvReac Type Severity Reaction Status Date / Time amoxicillin Allergy Unknown Verified 12/23/17 11:08 Childhood Penicillins Allergy Unknown Verified 12/23/17 11:08 Childhood Review of Systems ROS Statement: Those systems with pertinent positive or pertinent negative responses have been documented in the HPI. ROS Other: All systems not noted in ROS Statement are negative. Past Medical History Past Medical History: Coronary Artery Disease (CAD), Cancer, Hypertension, Myocardial Infarction ([place]), Prostate Disorder, Thyroid Disorder Additional Past Medical History / Comment(s): hx thyroid cancer, skin cancer Last Myocardial Infarction Date:: History of Any Multi-Drug Resistant Organisms: None Reported Past Surgical History: Coronary Bypass/CABG Additional Past Surgical History / Comment(s): thyroid cancer removed, circumcision, kylie cataracts with lens implants, skin cancer removal Past Anesthesia/Blood Transfusion Reactions: No Reported Reaction Past Psychological History: Depression Smoking Status: Former smoker Past Alcohol Use History: None Reported Past Drug Use History: None Reported - Past Family History Mother Family Medical History: No Reported History General Exam Limitations: no limitations General appearance: alert, in no apparent distress, other (This is a well- developed, well-nourished elderly male patient who appears pale. Vital signs upon presentation are temperature 98.7F, pulse 76, respirations 20, blood pressure 110/54, pulse ox 94% on room air.) Eye exam: Present: normal appearance, PERRL, EOMI, other (pale conjunctiva.). Absent: scleral icterus, conjunctival injection, periorbital swelling ENT exam: Present: normal exam, normal oropharynx, mucous membranes moist Respiratory exam: Present: normal lung sounds bilaterally. Absent: respiratory distress, wheezes, rales, rhonchi, stridor Cardiovascular Exam: Present: regular rate, normal rhythm, normal heart sounds. Absent: systolic murmur, diastolic murmur, rubs, gallop, clicks GI/Abdominal exam: Present: soft, normal bowel sounds. Absent: distended, tenderness, guarding, rebound, rigid Neurological exam: Present: alert, oriented X3, CN II-XII intact Psychiatric exam: Present: normal affect, normal mood Skin exam: Present: warm, dry, intact, pallor. Absent: normal color, rash Course Vital Signs 12/23/17 12/23/17 11:04 13:33 Temperature 98.7 F Pulse Rate 76 69 Respiratory 20 16 Rate Blood Pressure 110/54 136/84 O2 Sat by Pulse 94 L 100 Oximetry EKG Findings - EKG Comments: EKG Findings:: EKG obtained at 1131 shows normal sinus rhythm with nonspecific ST and T-wave abnormalities. Ventricular rate is 74, MN interval 196, QRS is 88 , QTC 396, QTc 439. Medical Decision Making - Medical Decision Making 77-year-old male patient presents to the emergency department today for evaluation of generalized weakness and tiredness. Patient states he's had a mild increase in shortness of breath. Physical examination is unremarkable. Lungs sounds are relatively normal. Vital signs are stable. EKG showed normal sinus rhythm with no evidence of acute [place]. Labs reviewed and are relatively unremarkable. I did discuss findings with the patient. He does feel comfortable being discharged home at this time to follow-up with his primary care physician. Return parameters were discussed in detail. He verbalizes understanding and agrees with this plan. - Lab Data Result diagrams: 12/23/17 11:31 12/23/17 11:35 Lab Results 12/23/17 12/23/17 12/23/17 Range/Units 11:31 11:31 11:35 WBC 6.3 (3.8-10.6) k/uL RBC 3.66 L (4.30-5.90) m/uL Hgb 11.0 L (13.0-17.5) gm/dL Hct 31.5 L (39.0-53.0) % MCV 86.1 (80.0-100.0) fL MCH 30.0 (25.0-35.0) pg MCHC 34.8 (31.0-37.0) g/dL RDW 26.1 H (11.5-15.5) % Plt Count 155 (150-450) k/uL Neutrophils % 73 % Lymphocytes % 13 % Monocytes % 10 % Eosinophils % 1 % Basophils % 0 % Neutrophils # 4.6 (1.3-7.7) k/uL Lymphocytes # 0.8 L (1.0-4.8) k/uL Monocytes # 0.6 (0-1.0) k/uL Eosinophils # 0.1 (0-0.7) k/uL Basophils # 0.0 (0-0.2) k/uL Anisocytosis Marked Macrocytosis Slight PT 11.0 (9.0-12.0) sec INR 1.1 (<1.2) APTT 22.3 (22.0-30.0) sec Sodium (137-145) mmol/L Potassium (3.5-5.1) mmol/L Chloride (98-107) mmol/L Carbon Dioxide (22-30) mmol/L Anion Gap mmol/L BUN (9-20) mg/dL Creatinine (0.66-1.25) mg/dL Est GFR (CKD-EPI)AfAm (>60 ml/min/1.73 sqM) Est GFR (CKD-EPI)NonAf (>60 ml/min/1.73 sqM) Glucose (74-99) mg/dL Plasma Lactic Acid Masood (0.7-2.0) mmol/L Calcium (8.4-10.2) mg/dL Magnesium (1.6-2.3) mg/dL Total Bilirubin (0.2-1.3) mg/dL AST (17-59) U/L ALT (21-72) U/L Alkaline Phosphatase (38-126) U/L Total Creatine Kinase 33 L (55-170) U/L CK-MB (CK-2) 0.3 (0.0-2.4) ng/mL CK-MB (CK-2) Rel Index 0.9 Troponin I <0.012 (0.000-0.034) ng/mL Total Protein (6.3-8.2) g/dL Albumin (3.5-5.0) g/dL Amylase (30-110) U/L Lipase (23-300) U/L Urine Color Urine Appearance (Clear) Urine pH (5.0-8.0) Ur Specific [place] (1.001-1.035) Urine Protein (Negative) Urine Glucose (UA) (Negative) Urine Ketones (Negative) Urine Blood (Negative) Urine Nitrite (Negative) Urine Bilirubin (Negative) Urine Urobilinogen (<2.0) mg/dL Ur Leukocyte Esterase (Negative) 12/23/17 12/23/17 12/23/17 Range/Units 11:35 11:35 11:35 WBC (3.8-10.6) k/uL RBC (4.30-5.90) m/uL Hgb (13.0-17.5) gm/dL Hct (39.0-53.0) % MCV (80.0-100.0) fL MCH (25.0-35.0) pg MCHC (31.0-37.0) g/dL RDW (11.5-15.5) % Plt Count (150-450) k/uL Neutrophils % % Lymphocytes % % Monocytes % % Eosinophils % % Basophils % % Neutrophils # (1.3-7.7) k/uL Lymphocytes # (1.0-4.8) k/uL Monocytes # (0-1.0) k/uL Eosinophils # (0-0.7) k/uL Basophils # (0-0.2) k/uL Anisocytosis Macrocytosis PT (9.0-12.0) sec INR (<1.2) APTT (22.0-30.0) sec Sodium 136 L (137-145) mmol/L Potassium 4.1 (3.5-5.1) mmol/L Chloride 98 (98-107) mmol/L Carbon Dioxide 31 H (22-30) mmol/L Anion Gap 7 mmol/L BUN 25 H (9-20) mg/dL Creatinine 1.00 (0.66-1.25) mg/dL Est GFR (CKD-EPI)AfAm 82 (>60 ml/min/1.73 sqM) Est GFR (CKD-EPI)NonAf 71 (>60 ml/min/1.73 sqM) Glucose 162 H (74-99) mg/dL Plasma Lactic Acid Masood 1.1 (0.7-2.0) mmol/L Calcium 8.9 (8.4-10.2) mg/dL Magnesium 1.9 (1.6-2.3) mg/dL Total Bilirubin 1.8 H (0.2-1.3) mg/dL AST 19 (17-59) U/L ALT 26 (21-72) U/L Alkaline Phosphatase 50 (38-126) U/L Total Creatine Kinase (55-170) U/L CK-MB (CK-2) (0.0-2.4) ng/mL CK-MB (CK-2) Rel Index Troponin I (0.000-0.034) ng/mL Total Protein 5.7 L (6.3-8.2) g/dL Albumin 3.5 (3.5-5.0) g/dL Amylase 58 (30-110) U/L Lipase 96 (23-300) U/L Urine Color Urine Appearance (Clear) Urine pH (5.0-8.0) Ur Specific [place] (1.001-1.035) Urine Protein (Negative) Urine Glucose (UA) (Negative) Urine Ketones (Negative) Urine Blood (Negative) Urine Nitrite (Negative) Urine Bilirubin (Negative) Urine Urobilinogen (<2.0) mg/dL Ur Leukocyte Esterase (Negative) 12/23/17 Range/Units 13:25 WBC (3.8-10.6) k/uL RBC (4.30-5.90) m/uL Hgb (13.0-17.5) gm/dL Hct (39.0-53.0) % MCV (80.0-100.0) fL MCH (25.0-35.0) pg MCHC (31.0-37.0) g/dL RDW (11.5-15.5) % Plt Count (150-450) k/uL Neutrophils % % Lymphocytes % % Monocytes % % Eosinophils % % Basophils % % Neutrophils # (1.3-7.7) k/uL Lymphocytes # (1.0-4.8) k/uL Monocytes # (0-1.0) k/uL Eosinophils # (0-0.7) k/uL Basophils # (0-0.2) k/uL Anisocytosis Macrocytosis PT (9.0-12.0) sec INR (<1.2) APTT (22.0-30.0) sec Sodium (137-145) mmol/L Potassium (3.5-5.1) mmol/L Chloride (98-107) mmol/L Carbon Dioxide (22-30) mmol/L Anion Gap mmol/L BUN (9-20) mg/dL Creatinine (0.66-1.25) mg/dL Est GFR (CKD-EPI)AfAm (>60 ml/min/1.73 sqM) Est GFR (CKD-EPI)NonAf (>60 ml/min/1.73 sqM) Glucose (74-99) mg/dL Plasma Lactic Acid Masood (0.7-2.0) mmol/L Calcium (8.4-10.2) mg/dL Magnesium (1.6-2.3) mg/dL Total Bilirubin (0.2-1.3) mg/dL AST (17-59) U/L ALT (21-72) U/L Alkaline Phosphatase (38-126) U/L Total Creatine Kinase (55-170) U/L CK-MB (CK-2) (0.0-2.4) ng/mL CK-MB (CK-2) Rel Index Troponin I (0.000-0.034) ng/mL Total Protein (6.3-8.2) g/dL Albumin (3.5-5.0) g/dL Amylase (30-110) U/L Lipase (23-300) U/L Urine Color Yellow Urine Appearance Clear (Clear) Urine pH 5.0 (5.0-8.0) Ur Specific [place] 1.009 (1.001-1.035) Urine Protein Negative (Negative) Urine Glucose (UA) Negative (Negative) Urine Ketones Negative (Negative) Urine Blood Negative (Negative) Urine Nitrite Negative (Negative) Urine Bilirubin Negative (Negative) Urine Urobilinogen <2.0 (<2.0) mg/dL Ur Leukocyte Esterase Negative (Negative) - Radiology Data Radiology results: report reviewed, image reviewed Two-view x-ray of the chest is obtained. Report shows lungs are over inflated. The heart is mildly enlarged. There is fine loss of the right lung base. This has progressed. There is some linear atelectasis at the left lung base. There is blunting of both costophrenic angles which could be secondary to overinflation. Impression by Dr. Davison shows partial collapse of the right middle lobe. Left basilar atelectasis. COPD. Cardiomegaly. Disposition Clinical Impression: Weakness Disposition: HOME SELF-CARE Condition: Good Instructions: Weakness (ED) Additional Instructions: Follow-up with her primary care physician for recheck as soon as possible. Increase fluids. Return here immediately for any new, worsening, or concerning symptoms. Is patient prescribed a controlled substance at d/c from ED?: No Referrals: Daniel Avila MD [Primary Care Provider] - 1-2 days Time of Disposition: 14:18
[2017-12-23 12:08] LABS: Albumin 3.5 g/dL (3.5-5.0); Calcium 8.9 mg/dL (8.4-10.2); Magnesium 1.9 mg/dL (1.6-2.3); Potassium 4.1 mmol/L (3.5-5.1); Total Bilirubin 1.8 mg/dL (0.2-1.3); Total Protein 5.7 g/dL (6.3-8.2)
[2017-12-23 12:09] LABS: INR 1.1 (<1.2); Partial Thromboplastin Time 22.3 sec (22.0-30.0)
[2017-12-23 12:16] LABS: Anisocytosis Marked; Basophils % (A) 0 %; Eosinophils # (A) 0.1 k/uL (0-0.7); Eosinophils % (A) 1 %; HCT 31.5 % (39.0-53.0); Lymphocytes # (A) 0.8 k/uL (1.0-4.8); Lymphocytes % (A) 13 %; MCHC 34.8 g/dL (31.0-37.0); MCV 86.1 fL (80.0-100.0); Macrocytosis Slight; Mean Platelet Volume 7.6; Monocytes # (A) 0.6 k/uL (0-1.0); Monocytes % (A) 10 %; Neutrophils # (A) 4.6 k/uL (1.3-7.7); Neutrophils % (A) 73 %; Platelet Count 155 k/uL (150-450); RBC 3.66 m/uL (4.30-5.90); WBC 6.3 k/uL (3.8-10.6)
[2017-12-23 12:19] LABS: Creatine Kinase 33 U/L (55-170)
[2017-12-23 12:32] LABS: Creatine Kinase MB 0.3 ng/mL (0.0-2.4); Troponin I <0.012 ng/mL (0.000-0.034)
[2017-12-23 12:35] LABS: RDW 26.1 % (11.5-15.5)
--- NOTE | 2017-12-23 13:02 | XR ---
EXAMINATION TYPE: XR chest 2V DATE OF EXAM: 12/23/2017 HISTORY: Weakness. REFERENCE: Previous study dated 11/24/2017. FINDINGS: The lungs are overinflated. The heart is mildly enlarged. There is volume loss of the right lung base. This has progressed. There is some linear atelectasis at the left lung base. There is frank nting of both CP angles which may be secondary to overinflation. IMPRESSION: 1. PARTIAL COLLAPSE OF THE RIGHT MIDDLE LOBE. 2. LEFT BASILAR ATELECTASIS. 3. COPD. 4. CARDIOMEGALY.
[2017-12-23 13:34] VITALS: RESP 16
[2017-12-23 13:46] LABS: Appearance,Urine Clear (Clear); Bilirubin,Urine Negative (Negative); Blood,Urine Negative (Negative); Color,Urine Yellow; Glucose,Urine (UA) Negative (Negative); Ketones,Urine Negative (Negative); Leukocyte Esterase,Urine Negative (Negative); Nitrite,Urine Negative (Negative); Protein,Urine Negative (Negative); Specific Gravity,Urine 1.009 (1.001-1.035); Urobilinogen,Urine <2.0 mg/dL (<2.0)
[2017-12-23 14:20] LABS: Amylase 58 U/L (30-110); Lipase 96 U/L (23-300)
[2017-12-23 15:20] VITALS: BP 138/69; PULSE 78; TEMP 97.9
== END 2017-12-23 15:19 | disposition home or self-care (01) ==
LOC: EC 10:50
DX: R53.1 Weakness (principal); J44.9 Chronic obstructive pulmonary disease, unspecified; J98.11 Atelectasis; J98.19 Other pulmonary collapse; H11.89 Other specified disorders of conjunctiva; R23.1 Pallor; R53.83 Other fatigue; R06.02 Shortness of breath; R05 Cough; R10.13 Epigastric pain; I11.9 Hypertensive heart disease without heart failure; N42.9 Disorder of prostate, unspecified; Z87.891 Personal history of nicotine dependence; Z79.899 Other long term (current) drug therapy; Z88.0 Allergy status to penicillin; Z85.850 Personal history of malignant neoplasm of thyroid; Z85.828 Personal history of other malignant neoplasm of skin; Z95.1 Presence of aortocoronary bypass graft; Z98.890 Other specified postprocedural states
CPT/HCPCS: 36415; 71046; 80053; 81003; 82150; 82550; 82553; 83605; 83690; 83735; 84484; 85025; 85610; 85730; 93005; 96360; 96361; 99285

== ENCOUNTER → 2018-01-17 | Outpatient (CLI) | payer MEDICARE, OTHER ==
--- NOTE | 2018-01-18 07:33 | CT ---
EXAMINATION TYPE: CT chest w con DATE OF EXAM: 01/17/2018 COMPARISON: Most recent chest x-ray December 23, 2017. Prior chest CT April 26, 2010 HISTORY: Abnormal cxr. CT DLP: 620 mGycm. Automated Exposure Control for Dose Reduction was Utilized. TECHNIQUE: CT scan of the thorax is performed following with IV Contrast, patient injected with 100 mL of Isovue M300. FINDINGS: LUNGS: There appears to be some chronic consolidation medially in the right lower lobe that has irreg ular scarring extending inferiorly and posteriorly to the pleura. This is fairly similar appearance t o prior CT. There is left medial basilar scarring and/or chronic consolidation also slightly more pro minent from 2010 CT. There is slightly lobulated 11 x 10 mm nodule axial image 40 which is slightly m ore prominent from 2010 CT. No suspicious right middle lobe mass or significant atelectasis is identi fied. There is focal scarring inferiorly near image 51 which is unchanged from prior. No pleural effu amira or pneumothorax is present. MEDIASTINUM: There are no greater than 1 cm hilar or mediastinal lymph nodes. No pericardial effusi on is seen. Heart size is mildly enlarged. There is moderate mixed plaque and ectatic descending tho racic aorta OTHER: There is moderate multilevel spurring in the thoracic spine. IMPRESSION: Chronic basilar changes without new suspicious significant focal atelectasis or worrisome focal obstructing mass.
== END | disposition home or self-care (01) ==
LOC: RADCTMAIN 15:40
PROVIDERS: ATTEND Internal Medicine
DX: R91.8 Other nonspecific abnormal finding of lung field (principal)
CPT/HCPCS: 82565; 84520; 71260; 36415; Q9967

== ENCOUNTER 2018-01-29 | Emergency (ER) | payer MEDICARE, OTHER ==
[2018-01-29 00:10] VITALS: BP 154/74; PULSE 68; RESP 20; TEMP 97.7
--- NOTE | 2018-01-29 00:42 | ED ---
General Adult HPI - General Chief complaint: Dental/Oral Stated complaint: LOOSE TOOTH Time Seen by Provider: 01/29/18 00:18 Source: patient Mode of arrival: ambulatory Limitations: no limitations - History of Present Illness Initial comments: 77-year-old male presents to the emergency room for a chief complaint of loose tooth times one day. Patient states today he bit into food but does not remember what he bit into. Patient states he noticed his tooth came loose at that time. Patient denies any pain preceding the loosening of the tooth. Patient denies any pain at this time besides for when he moves the tooth. Patient denies any fevers or chills at home. Patient states he does have a dentist and follows up with [facility]. Patient states he will be able to follow up with them tomorrow. Patient has no other complaints at this time including shortness of breath, chest pain, abdominal pain, nausea or vomiting, headache, or visual changes. - Related Data Home Medications Medication Instructions Recorded Confirmed Allopurinol [Zyloprim] 300 mg PO DAILY 11/30/14 01/29/18 Potassium Chloride ER [K-Dur 10] 10 meq PO DAILY 11/30/14 01/29/18 Tamsulosin [Flomax] 0.4 mg PO DAILY 11/30/14 01/29/18 Finasteride [Proscar] 5 mg PO DAILY 09/18/16 01/29/18 Levothyroxine Sodium [Synthroid] 112 mcg PO DAILY 09/18/16 01/29/18 Albuterol Inhaler [Ventolin Hfa 2 puff INHALATION RT-Q6H PRN 11/02/17 01/29/18 Inhaler] Albuterol Nebulized [Ventolin 2.5 mg INHALATION RT-Q6H PRN 11/02/17 01/29/18 Nebulized] Previous Rx's Medication Instructions Recorded Albuterol Sulfate [Proair Hfa] 1 - 2 puff INHALATION Q4H PRN #1 11/24/17 inhaler Clindamycin [Cleocin] 450 mg PO Q8H 10 Days capsule 01/29/18 Allergies Allergy/AdvReac Type Severity Reaction Status Date / Time amoxicillin Allergy Unknown Verified 12/23/17 11:08 Childhood Penicillins Allergy Unknown Verified 12/23/17 11:08 Childhood Review of Systems ROS Statement: Those systems with pertinent positive or pertinent negative responses have been documented in the HPI. ROS Other: All systems not noted in ROS Statement are negative. Past Medical History Past Medical History: Coronary Artery Disease (CAD), Cancer, Hypertension, Myocardial Infarction ([place]), Prostate Disorder, Thyroid Disorder Additional Past Medical History / Comment(s): hx thyroid cancer, skin cancer Last Myocardial Infarction Date:: History of Any Multi-Drug Resistant Organisms: None Reported Past Surgical History: Coronary Bypass/CABG Additional Past Surgical History / Comment(s): thyroid cancer removed, circumcision, kylie cataracts with lens implants, skin cancer removal Past Anesthesia/Blood Transfusion Reactions: No Reported Reaction Past Psychological History: Depression Smoking Status: Former smoker Past Alcohol Use History: None Reported Past Drug Use History: None Reported - Past Family History Mother Family Medical History: No Reported History General Exam Limitations: no limitations General appearance: alert, in no apparent distress Head exam: Present: atraumatic, normocephalic, normal inspection Eye exam: Present: normal appearance. Absent: scleral icterus, conjunctival injection ENT exam: Present: mucous membranes moist, TM's normal bilaterally, normal external ear exam. Absent: normal oropharynx (Patient has poor dentition. Patient has a fractured loose tooth 7. No evidence of abscess noted ) Neck exam: Present: normal inspection, full ROM. Absent: tenderness, meningismus, lymphadenopathy Respiratory exam: Present: normal lung sounds bilaterally. Absent: respiratory distress, wheezes, rales, rhonchi, stridor Cardiovascular Exam: Present: regular rate, normal rhythm, normal heart sounds. Absent: systolic murmur, diastolic murmur, rubs, gallop, clicks Neurological exam: Present: alert, oriented X3, CN II-XII intact Psychiatric exam: Present: normal affect, normal mood Course Vital Signs 01/29/18 00:06 Temperature 97.7 F Pulse Rate 68 Respiratory 20 Rate Blood Pressure 154/74 O2 Sat by Pulse 98 Oximetry Medical Decision Making - Medical Decision Making 77-year-old male presents to the emergency determine for a chief complaint of loose tooth times one day. Patient bit into something today and it caused a loosening of the tooth. Vitals are stable and patient is afebrile Patient does have poor dentition. Tooth #7 is loose on exam and is fractured. No evidence of abscess or infection at this time. However patient will be covered with clindamycin as he is penicillin ALLERGIC. Discussed that we do not remove teeth in the emergency department and he will need to see a dentist. Patient states [facility] and will follow up with them tomorrow morning. He will return to the emergency department if he has any worsening symptoms, fever, or signs of infection. Disposition Clinical Impression: Loosening of tooth Disposition: HOME SELF-CARE Condition: Good Instructions: Dental Caries (ED) Additional Instructions: Take antibiotic as directed. Please follow up with dentist in 1-2 days. Phone number to [facility] is [phone]. Address is [address] [place] [address]. Return to the emergency department if you have any worsening symptoms or fevers. Prescriptions: Clindamycin [Cleocin] 450 mg PO Q8H 10 Days capsule Is patient prescribed a controlled substance at d/c from ED?: No Referrals: Daniel Avila MD [Primary Care Provider] - 1-2 days Time of Disposition: 00:39
== END 2018-01-29 00:48 | disposition home or self-care (01) ==
LOC: EC
DX: S02.5XXA Fracture of tooth (traumatic), initial encounter for closed fracture (principal); K08.89 Other specified disorders of teeth and supporting structures; N42.9 Disorder of prostate, unspecified; E07.9 Disorder of thyroid, unspecified; Z87.891 Personal history of nicotine dependence; Z85.850 Personal history of malignant neoplasm of thyroid; Z85.828 Personal history of other malignant neoplasm of skin; Z95.1 Presence of aortocoronary bypass graft; Z98.890 Other specified postprocedural states; Z79.899 Other long term (current) drug therapy; Z88.0 Allergy status to penicillin; X58.XXXA Exposure to other specified factors, initial encounter
CPT/HCPCS: 99282

== ENCOUNTER 2018-04-07 11:58 | Emergency (ER) | payer MEDICARE, OTHER ==
[2018-04-07 12:04] VITALS: BP 143/80; PULSE 64; RESP 18; TEMP 97.5
[2018-04-07] MEDS ORDERED: DIPH,PERTUS(ACELL)TETVAC-LF 0.5 ML VIAL IM ONE (12:15)
--- NOTE | 2018-04-07 12:33 | ED ---
General Adult HPI <Christian Rutledge - Last Filed: 04/07/18 12:48> - General Source: patient, RN notes reviewed Mode of arrival: ambulatory Limitations: no limitations <Jose Begum - Last Filed: 04/07/18 20:00> - General Chief complaint: Wound/Laceration Stated complaint: arm lac Time Seen by Provider: 04/07/18 12:12 - History of Present Illness Initial comments: 78-year-old male presents to the emergency department for a chief complaint of skin tear occurring about one hour prior to arrival. Patient states he hit his arm against a wall which caused a skin tear. Patient denies any pain in the arm. Patient denies any other injuries. Patient denies falling or hitting his head. Patient is not up-to-date on tetanus. Patient has no other complaints at this time including shortness of breath, chest pain, abdominal pain, nausea or vomiting, headache, or visual changes. (Jose Begum) - Related Data Home Medications Medication Instructions Recorded Confirmed Allopurinol [Zyloprim] 300 mg PO DAILY 11/30/14 01/29/18 Potassium Chloride ER [K-Dur 10] 10 meq PO DAILY 11/30/14 01/29/18 Tamsulosin [Flomax] 0.4 mg PO DAILY 11/30/14 01/29/18 Finasteride [Proscar] 5 mg PO DAILY 09/18/16 01/29/18 Levothyroxine Sodium [Synthroid] 112 mcg PO DAILY 09/18/16 01/29/18 Albuterol Inhaler [Ventolin Hfa 2 puff INHALATION RT-Q6H PRN 11/02/17 01/29/18 Inhaler] Albuterol Nebulized [Ventolin 2.5 mg INHALATION RT-Q6H PRN 11/02/17 01/29/18 Nebulized] Previous Rx's Medication Instructions Recorded Albuterol Sulfate [Proair Hfa] 1 - 2 puff INHALATION Q4H PRN #1 11/24/17 inhaler Clindamycin [Cleocin] 450 mg PO Q8H 10 Days capsule 01/29/18 Allergies Allergy/AdvReac Type Severity Reaction Status Date / Time amoxicillin Allergy Unknown Verified 04/07/18 12:04 Childhood Penicillins Allergy Unknown Verified 04/07/18 12:04 Childhood Review of Systems ROS Other: All systems not noted in ROS Statement are negative. <AamirChristian - Last Filed: 04/07/18 12:48> ROS Other: All systems not noted in ROS Statement are negative. <KelJose - Last Filed: 04/07/18 20:00> ROS Statement: Those systems with pertinent positive or pertinent negative responses have been documented in the HPI. Past Medical History Past Medical History: Coronary Artery Disease (CAD), Cancer, Hypertension, Myocardial Infarction ([place]), Prostate Disorder, Thyroid Disorder Additional Past Medical History / Comment(s): hx thyroid cancer, skin cancer Last Myocardial Infarction Date:: History of Any Multi-Drug Resistant Organisms: None Reported Past Surgical History: Coronary Bypass/CABG Additional Past Surgical History / Comment(s): thyroid cancer removed, circumcision, kylie cataracts with lens implants, skin cancer removal Past Anesthesia/Blood Transfusion Reactions: No Reported Reaction Past Psychological History: Depression Smoking Status: Former smoker Past Alcohol Use History: None Reported Past Drug Use History: None Reported - Past Family History Mother Family Medical History: No Reported History <Jose Begum - Last Filed: 04/07/18 20:00> General Exam Limitations: no limitations General appearance: alert, in no apparent distress Head exam: Present: atraumatic, normocephalic, normal inspection Eye exam: Present: normal appearance, PERRL, EOMI. Absent: scleral icterus, conjunctival injection, periorbital swelling ENT exam: Present: normal exam, mucous membranes moist Neck exam: Present: normal inspection, full ROM. Absent: tenderness, meningismus, lymphadenopathy Respiratory exam: Present: normal lung sounds bilaterally. Absent: respiratory distress, wheezes, rales, rhonchi, stridor Cardiovascular Exam: Present: regular rate, normal rhythm, normal heart sounds. Absent: systolic murmur, diastolic murmur, rubs, gallop, clicks Extremities exam: Present: full ROM (Full range motion of the left hand and elbow.), normal capillary refill (Capillary refill less than 2 seconds and radial pulse 2+ left upper extremity), other (Patient has a 4 cm superficial skin tear noted on the dorsal left mid forearm.). Absent: tenderness (No tenderness in the left forearm) Neurological exam: Present: alert, oriented X3, CN II-XII intact Psychiatric exam: Present: normal affect, normal mood <Jose Begum - Last Filed: 04/07/18 20:00> Course <Christian Rutledge - Last Filed: 04/07/18 12:48> <Jose Begum - Last Filed: 04/07/18 20:00> Vital Signs 04/07/18 12:01 Temperature 97.5 F L Pulse Rate 64 Respiratory 18 Rate Blood Pressure 143/80 O2 Sat by Pulse 100 Oximetry - Reevaluation(s) Reevaluation #1: 04/07/18 12:48 PA supervision: I personally do a [id number] evaluation the patient patient did have a skin tear on his left upper extremity no other findings no other complaints. I do agree with the assessment and plan. Patient has no further questions or issues at this time. (Christian Rutledge) Medical Decision Making <Christian Rutledge - Last Filed: 04/07/18 12:48> <Jose Begum - Last Filed: 04/07/18 20:00> - Medical Decision Making 78-year-old male presents to the emergency department for a chief complaint of skin tear on the left dorsal forearm 1 hour. Patient accidentally hit his forearm against a wall. Vitals are stable. He denies any tenderness in the forearm. Full range motion in the left upper extremity. Neurovascular intact. 4 cm Skin tear was cleaned with saline and repaired with Steri-Strips. Patient states he did use skin glue over the wound prior to arrival. Patient was given a tetanus shot. He will monitor for signs of infection or any worsening symptoms and return if these occur. (Jose Begum) Disposition <AamirChristian - Last Filed: 04/07/18 12:48> Is patient prescribed a controlled substance at d/c from ED?: No Time of Disposition: 12:32 <Jose Begum - Last Filed: 04/07/18 20:00> Clinical Impression: Skin tear Disposition: HOME SELF-CARE Condition: Good Instructions: Skin Tear (ED) Additional Instructions: Please keep the area clean. Please monitor for any signs of infection such as spreading or streaking redness and return if these occur. Follow-up with primary care in 1-2 days for a wound recheck. Referrals: Daniel Avila MD [Primary Care Provider] - 1-2 days
== END 2018-04-07 12:52 | disposition home or self-care (01) ==
LOC: EC 11:58
DX: S51.812A Laceration without foreign body of left forearm, initial encounter (principal); Z23 Encounter for immunization; I25.10 Atherosclerotic heart disease of native coronary artery without angina pectoris; I25.2 Old myocardial infarction; E07.9 Disorder of thyroid, unspecified; Z79.899 Other long term (current) drug therapy; Z88.0 Allergy status to penicillin; Z87.891 Personal history of nicotine dependence; Z85.850 Personal history of malignant neoplasm of thyroid; Z85.828 Personal history of other malignant neoplasm of skin; Z95.1 Presence of aortocoronary bypass graft; W22.01XA Walked into wall, initial encounter
CPT/HCPCS: 90471; 90715; 99282

== ENCOUNTER 2018-08-10 22:18 | Emergency (ER) | payer MEDICARE, OTHER ==
[2018-08-10 22:46] VITALS: TEMP 98.2
--- NOTE | 2018-08-10 23:14 | ED ---
General Adult HPI - General Chief complaint: Upper Respiratory Infection Stated complaint: Congested Time Seen by Provider: 08/10/18 23:07 Source: patient Mode of arrival: ambulatory Limitations: no limitations - History of Present Illness Initial comments: Dictation was produced using [employer] dictation software. please excuse any gramm atical, word or spelling errors. Chief Complaint: 78-year-old male with past medical history of coronary artery disease, cancer, hypertension, prostate disease presents with productive cough, and nasal congestion. History of Present Illness: 78-year-old male with chief complaint nasal c ongestion and productive cough. Patient's feeling sick for approximately 2 days. Denies any overt sick contacts. Patient states he does have a albuterol inhaler at home. He states it does help. Patient denies any constitutional symptoms. No nausea, vomiting. She denies any chest pain. Patient reports that he is here make sure he doesn't have pneumonia. The ROS documented in this emergency department record has been reviewed and confirmed by me. Those systems with pertinent positive or negative responses have been documented in the HPI. All other systems are other negative and/or no ncontributory. PHYSICAL EXAM: General Impression: Alert and oriented x3, not in acute distress HEENT: Normocephalic atraumatic, extra-ocular movements intact, pupils equal and reactive to light bilaterally, mucous membranes moist. Cardiovascular: Heart regular rate and rhythm, S1&S2 audible, no murmurs, rubs or gallops Chest: Lungs clear to auscultation bilaterally, no rhonchi, no wheeze, no rales Abdomen: Bowel sounds present, abdomen soft, non-tender, non-distended, no organomegaly Musculoskeletal: Pulses present and equal in all extremities, no peripheral edema Motor: Power 5/5 bilaterally, no focal deficits noted Neurological: CN II-XII grossly intact, no focal motor or sensory deficits noted Skin: Intact with no visualized rashes Psych: Normal affect and mood ED course: 78-year-old male with chief complaint of cough and congestion 2 days. All signs upon arrival are within acceptable limits. EKG interpretation: Ventricular rate 66, normal sinus rhythm, MO interval 186, QRS 80, QTC 452. No MO prolongation, no QTC prolongation, no ST or T-wave changes noted. Overall, this EKG is unremarkableLaboratory evaluation obtained. No leukocytosis. Hemoglobin stable at 9.9. Rest of labs unremarkable. Chest x-rays obtained showing bibasilar opacity right greater than left. Patient's clinical presentation and physical examination suggest viral URI versus pneumonia however he didn't patient's age and subtle radiographic findings patient be given prescription for Zithromax pack. Give the emergency department no change in medical condition. Patient appears well. The patient's amenable for discharge given that patient not showing any signs of respiratory distress, hypoxia and has stable vital signs. Patient clinical presentation is consistent with sepsis at this time. Clear for discharge.a primary care physician. - Related Data Home Medications Medication Instructions Recorded Confirmed Allopurinol [Zyloprim] 300 mg PO DAILY 11/30/14 08/10/18 Potassium Chloride ER [K-Dur 10] 10 meq PO DAILY 11/30/14 08/10/18 Tamsulosin [Flomax] 0.4 mg PO DAILY 11/30/14 08/10/18 Finasteride [Proscar] 5 mg PO DAILY 09/18/16 08/10/18 Levothyroxine Sodium [Synthroid] 112 mcg PO DAILY 09/18/16 08/10/18 Albuterol Nebulized [Ventolin 2.5 mg INHALATION RT-Q6H PRN 11/02/17 08/10/18 Nebulized] Albuterol Sulfate [Proair Hfa] 1 - 2 puff INHALATION RT-Q4H PRN 08/10/18 08/10/18 Previous Rx's Medication Instructions Recorded Azithromycin [Zithromax Z-pack] 0 mg PO DIRECTED #6 tab 08/11/18 Allergies Allergy/AdvReac Type Severity Reaction Status Date / Time amoxicillin Allergy Unknown Verified 08/10/18 23:16 Childhood Penicillins Allergy Unknown Verified 08/10/18 23:16 Childhood Review of Systems ROS Statement: Those systems with pertinent positive or pertinent negative responses have been documented in the HPI. ROS Other: All systems not noted in ROS Statement are negative. Past Medical History Past Medical History: Coronary Artery Disease (CAD), Cancer, Hypertension, Myocardial Infarction ([place]), Prostate Disorder, Thyroid Disorder Additional Past Medical History / Comment(s): hx thyroid cancer, skin cancer Last Myocardial Infarction Date:: History of Any Multi-Drug Resistant Organisms: None Reported Past Surgical History: Coronary Bypass/CABG Additional Past Surgical History / Comment(s): thyroid cancer removed, circumcision, kylie cataracts with lens implants, skin cancer removal Past Anesthesia/Blood Transfusion Reactions: No Reported Reaction Past Psychological History: Depression Smoking Status: Former smoker Past Alcohol Use History: None Reported Past Drug Use History: None Reported - Past Family History Mother Family Medical History: No Reported History General Exam Limitations: no limitations Course Vital Signs 08/10/18 22:42 Temperature 98.2 F Pulse Rate 69 Respiratory 20 Rate Blood Pressure 131/58 O2 Sat by Pulse 95 Oximetry Medical Decision Making - Lab Data Result diagrams: 08/10/18 23:35 08/10/18 23:35 Lab Results 08/10/18 08/10/18 Range/Units 23:35 23:35 WBC 4.2 (3.8-10.6) k/uL RBC 3.08 L (4.30-5.90) m/uL Hgb 9.9 L (13.0-17.5) gm/dL Hct 27.2 L (39.0-53.0) % MCV 88.4 (80.0-100.0) fL MCH 32.3 (25.0-35.0) pg MCHC 36.6 (31.0-37.0) g/dL RDW 23.9 H (11.5-15.5) % Plt Count 129 L (150-450) k/uL Neutrophils % 62 % Lymphocytes % 19 % Monocytes % 13 % Eosinophils % 2 % Basophils % 0 % Neutrophils # 2.6 (1.3-7.7) k/uL Lymphocytes # 0.8 L (1.0-4.8) k/uL Monocytes # 0.6 (0-1.0) k/uL Eosinophils # 0.1 (0-0.7) k/uL Basophils # 0.0 (0-0.2) k/uL Anisocytosis Moderate Sodium 136 L (137-145) mmol/L Potassium 3.5 (3.5-5.1) mmol/L Chloride 100 (98-107) mmol/L Carbon Dioxide 28 (22-30) mmol/L Anion Gap 8 mmol/L BUN 33 H (9-20) mg/dL Creatinine 1.10 (0.66-1.25) mg/dL Est GFR (CKD-EPI)AfAm 73 (>60 ml/min/1.73 sqM) Est GFR (CKD-EPI)NonAf 63 (>60 ml/min/1.73 sqM) Glucose 113 H (74-99) mg/dL Calcium 8.7 (8.4-10.2) mg/dL Disposition Clinical Impression: Viral infection, Pneumonia Disposition: HOME SELF-CARE Condition: Good Instructions (If sedation given, give patient instructions): Upper Respiratory Infection (ED) Prescriptions: Azithromycin [Zithromax Z-pack] 0 mg PO DIRECTED #6 tab Is patient prescribed a controlled substance at d/c from ED?: No Referrals: Daniel Avila MD [Primary Care Provider] - 1-2 days Time of Disposition: 00:53
[2018-08-11 00:02] LABS: Anisocytosis Moderate; Basophils % (A) 0 %; Eosinophils # (A) 0.1 k/uL (0-0.7); Eosinophils % (A) 2 %; HCT 27.2 % (39.0-53.0); HGB 9.9 gm/dL (13.0-17.5); Lymphocytes # (A) 0.8 k/uL (1.0-4.8); Lymphocytes % (A) 19 %; MCH 32.3 pg (25.0-35.0); MCHC 36.6 g/dL (31.0-37.0); MCV 88.4 fL (80.0-100.0); Mean Platelet Volume 8.8; Monocytes # (A) 0.6 k/uL (0-1.0); Monocytes % (A) 13 %; Neutrophils # (A) 2.6 k/uL (1.3-7.7); Neutrophils % (A) 62 %; Platelet Count 129 k/uL (150-450); RBC 3.08 m/uL (4.30-5.90); RDW 23.9 % (11.5-15.5); WBC 4.2 k/uL (3.8-10.6)
[2018-08-11 00:07] LABS: Calcium 8.7 mg/dL (8.4-10.2); Potassium 3.5 mmol/L (3.5-5.1)
--- NOTE | 2018-08-11 00:23 | XR ---
EXAM: XR Chest, 2 Views CLINICAL HISTORY: Pain. TECHNIQUE: Frontal and lateral views of the chest. COMPARISON: CXR dated 12/23/2017. FINDINGS: Lungs: Bibasilar opacity (R>L) suspicious for pneumonia in the appropriate clinical setting. Pleural space: No evidence of pleural effusion. No pneumothorax. Heart: Mildly enlarged cardiac silhouette. Mediastinum: No mediastinal widening. Atherosclerosis at the aortic arch. Bones/joints: Osseous degenerative changes. Osseous structures appear intact. IMPRESSION: 1. Bibasilar opacity (R>L) suspicious for pneumonia in the appropriate clinical setting. Atelectasis and/or other etiologies not excluded. Correlate clinically and recommend follow-up imaging to reassess. 2. Mildly enlarged cardiac silhouette.
[2018-08-11 01:32] VITALS: BP 146/68; PULSE 66; RESP 18
== END 2018-08-11 01:32 | disposition home or self-care (01) ==
LOC: EC 22:18
DX: J12.9 Viral pneumonia, unspecified (principal); I25.2 Old myocardial infarction; I25.10 Atherosclerotic heart disease of native coronary artery without angina pectoris; N42.9 Disorder of prostate, unspecified; Z95.1 Presence of aortocoronary bypass graft; Z87.891 Personal history of nicotine dependence; Z85.850 Personal history of malignant neoplasm of thyroid; Z85.828 Personal history of other malignant neoplasm of skin; Z79.890 Hormone replacement therapy; Z79.899 Other long term (current) drug therapy; Z88.0 Allergy status to penicillin
CPT/HCPCS: 36415; 71046; 80048; 85025; 93005; 99284

== ENCOUNTER → 2018-08-23 | Outpatient (CLI) | payer MEDICARE, OTHER ==
--- NOTE | 2018-08-23 15:04 | XR ---
EXAMINATION TYPE: XR chest 2V DATE OF EXAM: 08/23/2018 COMPARISON: 08/10/2018 HISTORY: 78-year-old male follow-up pneumonia TECHNIQUE: Frontal and lateral views FINDINGS: Heart upper limits of normal in size. Hyperinflation flattening the hemidiaphragms. Residual patchy b ibasilar opacities though improved from prior exam. Nodularity posteriorly in the lung base on the la teral view projecting over the spine was present previously as well. IMPRESSION: COPD with mild residual atelectasis/scarring or infiltrates at the lung bases. Findings of partial im provement from 08/10/2018.
== END | disposition home or self-care (01) ==
LOC: RADXRMAIN 12:40
PROVIDERS: ATTEND Internal Medicine
DX: J44.9 Chronic obstructive pulmonary disease, unspecified (principal)
CPT/HCPCS: 71046

== ENCOUNTER → 2018-09-20 | Outpatient (CLI) | payer MEDICARE, OTHER ==
[2018-09-20 13:15] LABS: Calcium 9.3 mg/dL (8.4-10.2); Potassium 4.1 mmol/L (3.5-5.1)
[2018-09-20 13:31] LABS: Anisocytosis Moderate; Basophils % (A) 1 %; Eosinophils # (A) 0.1 k/uL (0-0.7); Eosinophils % (A) 3 %; HCT 32.6 % (39.0-53.0); Hypochromasia Slight; Lymphocytes % (A) 40 %; MCH 30.5 pg (25.0-35.0); MCHC 33.9 g/dL (31.0-37.0); Mean Platelet Volume 8.3; Monocytes # (A) 0.3 k/uL (0-1.0); Monocytes % (A) 10 %; Neutrophils % (A) 42 %; Platelet Count 144 k/uL (150-450); RBC 3.62 m/uL (4.30-5.90); RDW 23.5 % (11.5-15.5); WBC 2.4 k/uL (3.8-10.6)
== END ==
LOC: LABPAT 11:16
PROVIDERS: ATTEND Urology
DX: Z01.818 Encounter for other preprocedural examination (principal); I10 Essential (primary) hypertension; N40.1 Benign prostatic hyperplasia with lower urinary tract symptoms; R35.0 Frequency of micturition
CPT/HCPCS: 80048; 85025; 87086; 93005

== ENCOUNTER → 2018-11-01 | Outpatient (CLI) | payer MEDICARE, OTHER ==
[2018-11-01 12:43] LABS: Calcium 8.9 mg/dL (8.4-10.2); Potassium 4.5 mmol/L (3.5-5.1)
[2018-11-01 13:02] LABS: Anisocytosis Moderate; Basophils % (A) 1 %; Eosinophils % (A) 1 %; HCT 30.5 % (39.0-53.0); HGB 10.3 gm/dL (13.0-17.5); Lymphocytes # (A) 1.1 k/uL (1.0-4.8); Lymphocytes % (A) 31 %; MCH 30.7 pg (25.0-35.0); MCHC 33.9 g/dL (31.0-37.0); MCV 90.5 fL (80.0-100.0); Macrocytosis Slight; Mean Platelet Volume 8.4; Monocytes # (A) 0.4 k/uL (0-1.0); Monocytes % (A) 10 %; Neutrophils % (A) 54 %; Platelet Count 147 k/uL (150-450); RBC 3.37 m/uL (4.30-5.90); RDW 23.8 % (11.5-15.5); WBC 3.6 k/uL (3.8-10.6)
[2018-11-01 14:36] LABS: Poikilocytosis (M) Present
== END | disposition home or self-care (01) ==
LOC: LABPAT 11:43
PROVIDERS: ATTEND Urology
DX: Z01.812 Encounter for preprocedural laboratory examination (principal); N40.1 Benign prostatic hyperplasia with lower urinary tract symptoms; R35.0 Frequency of micturition
CPT/HCPCS: 80048; 85025; 87086

== ENCOUNTER 2018-11-08 06:29 | Day surgery (SDC) | payer MEDICARE, OTHER ==
--- NOTE | 2018-11-01 10:01 | P.GSHP ---
History of Present Illness H&P Date: 11/01/18 Chief Complaint: Weak urinary stream The patient is an 78-year-old male who underwent TUMT of the prostate in 2004. However, he has experienced persistent voiding symptoms, for which he is taking tamsulosin and finasteride. Cystoscopy in 2014 showed occlusion due to residual lateral lobe enlargement. The postvoid residual was recently 156 mL. He has elected to undergo a TURP and comes for this reason. - Cardiovascular Cardiovascular: Reports high blood pressure - Respiratory Respiratory: Reports dyspnea - Genitourinary (Female) Genitourinary: Reports nocturia Past Medical History Past Medical History: Coronary Artery Disease (CAD), Cancer, Hypertension, Myocardial Infarction ([place]), Prostate Disorder, Thyroid Disorder Additional Past Medical History / Comment(s): hx thyroid cancer, skin cancer Last Myocardial Infarction Date:: History of Any Multi-Drug Resistant Organisms: None Reported Past Surgical History: Coronary Bypass/CABG Additional Past Surgical History / Comment(s): thyroid cancer removed, circumcision, kylie cataracts with lens implants, skin cancer removal Past Anesthesia/Blood Transfusion Reactions: No Reported Reaction Past Psychological History: Depression - Past Family History Mother Family Medical History: No Reported History Medications and Allergies Home Medications Medication Instructions Recorded Confirmed Type Potassium Chloride ER [K-Dur 10] 10 meq PO DAILY 11/30/14 09/26/18 History Tamsulosin [Flomax] 0.4 mg PO BID 11/30/14 09/26/18 History Finasteride [Proscar] 5 mg PO DAILY 09/18/16 09/26/18 History Albuterol Sulfate [Proair Hfa] 1 - 2 puff INHALATION RT-Q4H PRN 08/10/18 09/26/18 History Atenolol [Tenormin] 25 mg PO BID 09/26/18 09/26/18 History Atorvastatin [Lipitor] 20 mg PO DAILY 09/26/18 09/26/18 History Furosemide [Lasix] 40 mg PO DAILY 09/26/18 09/26/18 History Isosorbide Mononitrate [Isosorbide 30 mg PO BID 09/26/18 09/26/18 History Mononitrate ER] Levothyroxine Sodium 125 mcg PO DAILY 09/26/18 09/26/18 History Lisinopril 20 mg PO DAILY 09/26/18 09/26/18 History Meclizine [Antivert] 12.5 mg PO DAILY 09/26/18 09/26/18 History Allergies Allergy/AdvReac Type Severity Reaction Status Date / Time amoxicillin Allergy Unknown Verified 09/26/18 09:20 Childhood Penicillins Allergy Unknown Verified 09/26/18 09:20 Childhood Surgical - Exam - General well developed, well nourished, no distress - Respiratory normal respiratory effort, clear to auscultation - Cardiovascular Rhythm: regular Abnormal Heart Sounds: no systolic murmur, no diastolic murmur, no rub, no S3 Gallop, no S4 Gallop, no click, no other - Abdomen Abdomen: soft, non tender, no guarding, no rigid, no rebound - Genitourinary normal penis with no external lesions left: testicle absent - Rectum Rectum: normal sphincter tone, no masses, other (Prostate enlarged but smooth) - Psychiatric oriented to time, oriented to person, oriented to place, speech is normal, memory intact Assessment and Plan (1) Benign prostatic hyperplasia with lower urinary tract symptoms Status: Acute Code(s): N40.1 - BENIGN PROSTATIC HYPERPLASIA WITH LOWER URINARY TRACT SYMP SNOMED Code(s): 715886779 Plan: Cystoscopy, bipolar transurethral resection of prostate (TURP). The procedure has been reviewed in detail with the patient. He understands potential risks to include anesthesia, bleeding, infection, vesical neck contracture, urinary incontinence, and retrograde ejaculation. He also understands that his urinary frequency and nocturia may persist despite successful treatment of his BPH.
[~2018-11-08 06:29] MED LIST changes: +DEXAMETHASONE SOD PHOSPHATE 10 MG/ML 1 ML VIAL IV ONE; -DEXAMETHASONE SOD PHOSPHATE 4 MG/ML 1 ML VIAL IV ONE; -FAMOTIDINE 20 MG/2 ML VIAL IV ONE; +LEVOFLOXACIN 500MG-D5W PMX 500 MG in DEXTROSE/WATER 1 100ML.BAG IVPB ONE; +LIDOCAINE 1% 20 ML VIAL (10MG/ML) FOR IV START INTRADERMA PRN; +MIDAZOLAM 2 MG/2 ML VIAL IV PRN; -Pre Op ABX Message 1 EACH MISC MISCELLANE ONE; +SCOPOLAMINE 1.5MG/72HR PATCH TRANSDERM ONE; -fentaNYL (PF) 50 MCG/ML 2 ML AMP IV PRN
[2018-11-08] MEDS ORDERED: MIDAZOLAM 2 MG/2 ML VIAL ONE (08:31)
[2018-11-08] MEDS ORDERED: fentaNYL (PF) 50 MCG/ML 2 ML AMP ONE (08:31)
[2018-11-08] MEDS ORDERED: ONDANSETRON 4 MG/2 ML VIAL ONE (08:31)
[2018-11-08] MEDS ORDERED: PROPOFOL 10 MG/ML 20 ML VIAL IV ONE (08:31)
[2018-11-08] MEDS ORDERED: ALBUTEROL NEBULIZED 2.5 MG/3 ML INHALATION PRN (11:38)
--- NOTE | 2018-11-08 11:38 | P.OP ---
Date of Procedure: 11/08/18 Preoperative Diagnosis: BPH with Obstruction Postoperative Diagnosis: Same Procedure(s) Performed: Cystoscopy, Bipolar Transurethral Resection of the Prostate (TURP) Anesthesia: spinal Surgeon: Chon Spencer Estimated Blood Loss (ml): 150 IV fluids (ml): 500 Condition: stable Disposition: PACU Indications for Procedure: The patient is an 78-year-old male who underwent TUMT of the prostate in 2004. However, he has experienced persistent voiding symptoms, for which he is taking tamsulosin and finasteride. Cystoscopy in 2014 showed occlusion due to residual lateral lobe enlargement. The postvoid residual was recently 156 mL. He has elected to undergo a TURP and comes for this reason. Operative Findings: Obstructing BPH Description of Procedure: The patient was taken in the operating room and placed in the dorsolithotomy position after being given a spinal anesthetic. The external genitalia was prepped and draped sterilely. The David urethrotome was used to incise the urethra to 26-Congolese. The 25-Congolese [employer] resectoscope sheath was introduced into the bladder. The bladder was inspected. Both ureteral orifices were of normal anatomic location and configuration, and clear urine effluxed from both. No tumors or foreign bodies were seen. Examination of the prostate revealed complete obstruction with a bilobar configuration. There was some distortion of the prostatic urethra due to the prior TUMT. Using the bipolar cutting loop, the lateral lobes were resected down to the surgical capsule. The floor of the prostate was then resected, proximal to the verumontanum. Lastly, any remaining anterior tissue was resected. The remaining apical tissue was then carefully resected. The resection was carried down to the surgical capsule in all 4 quadrants. The prostatic fossa was then carefully examined, and any areas of bleeding were controlled with electrocautery. The spinal anesthetic began to wear off, and the patient was restless. There appeared to be a bleeder within the distal prostatic fossa which could not be identified. Nonetheless, hemostasis appeared to be adequate. The resectoscope was withdrawn into the bulbous urethra. The external urinary sphincter remained intact. The prostatic fossa was open, though there was some residual apical tissue.. The [employer] evacuator was used to remove all prostate chips from the bladder. These were saved and sent for pathologic examination. The resectoscope was removed and a 22 [place]ese, 3-Way Cox catheter was placed. The catheter was taped to the leg with traction, Continuous bladder irrigation was started using 0.9 normal sa line, and the return was pink tinged. The patient tolerated the procedure well was taken to the recovery room in stable condition.
[2018-11-08] MEDS ORDERED: BELLADONNA-OPIUM 16.2-60 MG 1 EACH SUPP RECTAL PRN (11:40)
[2018-11-08] MEDS: HYDROmorphone 0.5 MG/0.5 ML SYRINGE IVP PRN ×2 (11:55→12:08)
[2018-11-08 14:19] VITALS: BMI 29.0
[2018-11-08] MEDS: MECLIZINE 12.5 MG TAB PO SCH ×2 (17:08→20:28)
[2018-11-08] MEDS: ATENOLOL 25 MG TAB PO SCH (20:27)
[2018-11-08] MEDS: DOCUSATE 100 MG CAP PO SCH (20:27)
[2018-11-08] MEDS: TAMSULOSIN 0.4 MG CAP.ER.24H PO SCH (20:27)
[2018-11-08] MEDS: SODIUM CHLORIDE 0.9% IRRIG 3,000 ML BAG IRRIGATION SCH (20:27)
[2018-11-08] MEDS: ISOSORBIDE MONONITRATE ER 30 MG TAB.ER.24H PO SCH (20:27)
[2018-11-08] MEDS: DEXTROSE 5%-0.45% NACL 1,000 ML IV SCH (20:28)
[2018-11-09] MEDS: DEXTROSE 5%-0.45% NACL 1,000 ML IV SCH ×2 (00:45→19:14)
[2018-11-09] MEDS: SODIUM CHLORIDE 0.9% IRRIG 3,000 ML BAG IRRIGATION SCH ×3 (00:46→19:14)
[2018-11-09] MEDS: LEVOTHYROXINE 125 MCG TAB PO SCH (06:28)
--- NOTE | 2018-11-09 07:33 | P.PN ---
Progress Note - Text Progress Note Date: 11/09/18 The patient is afebrile and normotensive. He is comfortable and tolerating regular diet. He denies any chest pain or shortness of breath. His urine is minimally pink tinged with bladder irrigation. The bladder irrigation will be discontinued. If his urine remains relatively clear he will be discharged later today. He should return to the office early on Monday morning so his catheter can be removed.
[2018-11-09] MEDS: ATORVASTATIN 20 MG TAB PO SCH (08:44)
[2018-11-09] MEDS: TAMSULOSIN 0.4 MG CAP.ER.24H PO SCH ×2 (08:44→20:57)
[2018-11-09] MEDS: FINASTERIDE 5 MG TAB PO SCH (08:44)
[2018-11-09] MEDS: DOCUSATE 100 MG CAP PO SCH ×2 (08:44→20:58)
[2018-11-09] MEDS: ALLOPURINOL 300 MG TAB PO SCH (08:44)
[2018-11-09] MEDS: POTASSIUM CHLORIDE ER 10 MEQ TAB.ER.PRT PO SCH (08:44)
[2018-11-09] MEDS: FUROSEMIDE 40 MG TAB PO SCH (08:44)
[2018-11-09] MEDS: ATENOLOL 25 MG TAB PO SCH ×2 (08:44→20:57)
[2018-11-09] MEDS: ISOSORBIDE MONONITRATE ER 30 MG TAB.ER.24H PO SCH ×2 (08:44→20:57)
[2018-11-09] MEDS: MECLIZINE 12.5 MG TAB PO SCH ×3 (08:44→20:58)
[2018-11-09] MEDS: LISINOPRIL 20 MG TAB PO SCH (08:44)
[2018-11-10] MEDS: DEXTROSE 5%-0.45% NACL 1,000 ML IV SCH ×2 (00:52→16:44)
[2018-11-10] MEDS: SODIUM CHLORIDE 0.9% IRRIG 3,000 ML BAG IRRIGATION SCH (06:15)
[2018-11-10] MEDS: LEVOTHYROXINE 125 MCG TAB PO SCH (06:15)
[2018-11-10] MEDS: FUROSEMIDE 40 MG TAB PO SCH (08:51)
[2018-11-10] MEDS: DOCUSATE 100 MG CAP PO SCH ×2 (08:51→20:19)
[2018-11-10] MEDS: ALLOPURINOL 300 MG TAB PO SCH (08:51)
[2018-11-10] MEDS: LISINOPRIL 20 MG TAB PO SCH (08:51)
[2018-11-10] MEDS: FINASTERIDE 5 MG TAB PO SCH (08:51)
[2018-11-10] MEDS: ISOSORBIDE MONONITRATE ER 30 MG TAB.ER.24H PO SCH ×2 (08:51→20:19)
[2018-11-10] MEDS: TAMSULOSIN 0.4 MG CAP.ER.24H PO SCH ×2 (08:51→20:18)
[2018-11-10] MEDS: POTASSIUM CHLORIDE ER 10 MEQ TAB.ER.PRT PO SCH (08:51)
[2018-11-10] MEDS: ATENOLOL 25 MG TAB PO SCH ×2 (08:52→20:19)
[2018-11-10] MEDS: MECLIZINE 12.5 MG TAB PO SCH ×3 (08:52→20:19)
[2018-11-10] MEDS: ATORVASTATIN 20 MG TAB PO SCH (08:52)
--- NOTE | 2018-11-10 09:22 | P.PN ---
Progress Note - Text Progress Note Date: 11/10/18 Mr. Gonsalez is resting comfortably this morning. Continuous bladder irrigation is off. The urine is pink in color. However, he required manual irrigation of clots overnight. In view of this, I have decided to keep him in the hospital an additional day. I anticipate removal of his Cox catheter prior to discharge tomorrow.
[2018-11-11] MEDS: LEVOTHYROXINE 125 MCG TAB PO SCH (05:45)
[2018-11-11 07:32] VITALS: RESP 16
[2018-11-11] MEDS: DOCUSATE 100 MG CAP PO SCH (08:58)
[2018-11-11] MEDS: ISOSORBIDE MONONITRATE ER 30 MG TAB.ER.24H PO SCH (08:58)
[2018-11-11] MEDS: DEXTROSE 5%-0.45% NACL 1,000 ML IV SCH (08:58)
[2018-11-11] MEDS: ATORVASTATIN 20 MG TAB PO SCH (08:58)
[2018-11-11] MEDS: ALLOPURINOL 300 MG TAB PO SCH (08:58)
[2018-11-11] MEDS: TAMSULOSIN 0.4 MG CAP.ER.24H PO SCH (08:58)
[2018-11-11] MEDS: MECLIZINE 12.5 MG TAB PO SCH ×2 (08:58→15:36)
[2018-11-11] MEDS: FINASTERIDE 5 MG TAB PO SCH (08:58)
[2018-11-11] MEDS: POTASSIUM CHLORIDE ER 10 MEQ TAB.ER.PRT PO SCH (08:58)
[2018-11-11] MEDS: LISINOPRIL 20 MG TAB PO SCH (08:59)
[2018-11-11] MEDS: ATENOLOL 25 MG TAB PO SCH (08:59)
[2018-11-11] MEDS: FUROSEMIDE 40 MG TAB PO SCH (08:59)
--- NOTE | 2018-11-11 11:56 | P.DS ---
Providers Expected date of discharge: 11/11/18 Attending physician: Chon Spencer Primary care physician: Daniel Avila - Discharge Diagnosis(es) (1) Benign prostatic hyperplasia with lower urinary tract symptoms Status: Acute Hospital Course: On the day of admission, the patient underwent a bipolar transurethral resection of prostate (TURP). The spinal anesthetic wore off and the patient began to get restless, and therefore not as much time could be spent cauterizing bleeders as is typical. He was therefore hospitalized with continuous bladder irrigation postoperatively. The urine was light pink on the first postoperative day, and continuous bladder irrigation was discontinued. However, the urine was not clear enough to allow discharge. That night, he required manual irrigation of clots and the catheter continued to drain well throughout the remainder of the hospitalization. On the third postoperative day, the urine was essentially clear and the Cox catheter removed. Procedures: Cystoscopy, TURP on 11/08/2018. Patient Condition at Discharge: Good Plan - Discharge Summary Discharge Rx Participant: No New Discharge Prescriptions: New Ciprofloxacin HCl [Cipro] 250 mg PO Q12HR #6 tablet No Action Tamsulosin [Flomax] 0.4 mg PO BID Potassium Chloride ER [K-Dur 10] 10 meq PO QAM Finasteride [Proscar] 5 mg PO QAM Albuterol Sulfate [Proair Hfa] 1 - 2 puff INHALATION RT-Q4H PRN PRN Reason: Shortness Of Breath Levothyroxine Sodium 125 mcg PO QAM Meclizine [Antivert] 12.5 mg PO TID Lisinopril 20 mg PO QAM Isosorbide Mononitrate [Isosorbide Mononitrate ER] 30 mg PO BID Furosemide [Lasix] 40 mg PO QAM Atorvastatin [Lipitor] 20 mg PO QAM Atenolol [Tenormin] 25 mg PO BID Allopurinol [Zyloprim] 300 mg PO DAILY Discharge Medication List Potassium Chloride ER [K-Dur 10] 10 meq PO QAM 11/30/14 [History] Tamsulosin [Flomax] 0.4 mg PO BID 11/30/14 [History] Finasteride [Proscar] 5 mg PO QAM 09/18/16 [History] Albuterol Sulfate [Proair Hfa] 1 - 2 puff INHALATION RT-Q4H PRN 08/10/18 [History] Atenolol [Tenormin] 25 mg PO BID 09/26/18 [History] Atorvastatin [Lipitor] 20 mg PO QAM 09/26/18 [History] Furosemide [Lasix] 40 mg PO QAM 09/26/18 [History] Isosorbide Mononitrate [Isosorbide Mononitrate ER] 30 mg PO BID 09/26/18 [History] Levothyroxine Sodium 125 mcg PO QAM 09/26/18 [History] Lisinopril 20 mg PO QAM 09/26/18 [History] Meclizine [Antivert] 12.5 mg PO TID 09/26/18 [History] Allopurinol [Zyloprim] 300 mg PO DAILY 11/06/18 [History] Ciprofloxacin HCl [Cipro] 250 mg PO Q12HR #6 tablet 11/11/18 [Rx] Follow up Appointment(s)/Referral(s): Chon Spencer MD [STAFF PHYSICIAN] - 1 Week Activity/Diet/Wound Care/Special Instructions: Drink plenty of fluids. Avoid lifting, driving, and strenuous activity. Take stool softener to avoid constipation. Discharge Disposition: HOME SELF-CARE
[2018-11-11] MEDS: SODIUM CHLORIDE 0.9% IRRIG 3,000 ML BAG IRRIGATION SCH (12:24)
[2018-11-11 14:43] VITALS: BP 136/59; PULSE 65; TEMP 97.6
== END 2018-11-11 18:02 | disposition home or self-care (01) ==
LOC: OR 06:29 → 4MS4W 12:17 → 4SSUR 12:48 → OR 11-11 18:02
PROVIDERS: ATTEND Urology
DX: N40.1 Benign prostatic hyperplasia with lower urinary tract symptoms (principal); N13.8 Other obstructive and reflux uropathy; R39.12 Poor urinary stream; R35.0 Frequency of micturition; R35.1 Nocturia; I10 Essential (primary) hypertension; I25.10 Atherosclerotic heart disease of native coronary artery without angina pectoris; Z95.1 Presence of aortocoronary bypass graft; I25.2 Old myocardial infarction; E07.9 Disorder of thyroid, unspecified; Z90.79 Acquired absence of other genital organ(s); Z85.850 Personal history of malignant neoplasm of thyroid; Z85.828 Personal history of other malignant neoplasm of skin; Z96.1 Presence of intraocular lens; Z87.891 Personal history of nicotine dependence; Z79.890 Hormone replacement therapy; Z79.899 Other long term (current) drug therapy; Z88.0 Allergy status to penicillin
CPT/HCPCS: 52601; 88305; S0138 ×3; J2250; J1100; J2405; J1956; J3010; J2704; J1170

== ENCOUNTER 2019-11-06 06:31 | Emergency (ER) | payer MEDICARE, OTHER ==
[2019-11-06 06:42] VITALS: RESP 18; TEMP 98.2
[2019-11-06] MEDS ORDERED: FLUORESCEIN STRIPS 1 MG STRIP BOTH EYES ONE (07:00)
[2019-11-06] MEDS ORDERED: ACET/COD 300 MG/30 MG STARTER PACK 6 TAB BTL PO STA (07:33)
--- NOTE | 2019-11-06 07:34 | ED ---
Extremity Problem HPI - General Chief complaint: Extremity Problem,Nontraumatic Stated complaint: Rt flank pain Time Seen by Provider: 11/06/19 06:42 Source: patient Mode of arrival: ambulatory Limitations: no limitations - History of Present Illness Initial comments: 79-year-old male presents today for chief complaint of right flank pain. Patient states that he has noticed pain in the right flank. Patient states wraps around towards his abdomen in the same line. Patient denies any fevers denies any eye redness or pain denies any hearing changes or tinnitus. Patient denies any ear pain denies any other areas of pain denies a falls or direct trauma. Denies dysuria urgency frequency or hematuria. Remaining review systems negative upon arrival patient appears well no signs acute distress. - Related Data Home Medications Medication Instructions Recorded Confirmed Potassium Chloride ER [K-Dur 10] 10 meq PO QAM 11/30/14 11/08/18 Tamsulosin [Flomax] 0.4 mg PO BID 11/30/14 11/08/18 Finasteride [Proscar] 5 mg PO QAM 09/18/16 11/08/18 Albuterol Sulfate [Proair Hfa] 1 - 2 puff INHALATION RT-Q4H PRN 08/10/18 11/08/18 Atenolol [Tenormin] 25 mg PO BID 09/26/18 11/08/18 Atorvastatin [Lipitor] 20 mg PO QAM 09/26/18 11/08/18 Furosemide [Lasix] 40 mg PO QAM 09/26/18 11/08/18 Isosorbide Mononitrate [Isosorbide 30 mg PO BID 09/26/18 11/08/18 Mononitrate ER] Levothyroxine Sodium 125 mcg PO QAM 09/26/18 11/08/18 Lisinopril 20 mg PO QAM 09/26/18 11/08/18 Meclizine [Antivert] 12.5 mg PO TID 09/26/18 11/08/18 Allopurinol [Zyloprim] 300 mg PO DAILY 11/06/18 11/08/18 Previous Rx's Medication Instructions Recorded Ciprofloxacin HCl [Cipro] 250 mg PO Q12HR #6 tablet 11/11/18 valACYclovir HCL [Valacyclovir] 1,000 mg PO Q8H 7 Days #21 tab 11/06/19 Allergies Allergy/AdvReac Type Severity Reaction Status Date / Time amoxicillin Allergy Unknown Verified 11/06/19 06:42 Childhood Penicillins Allergy Unknown Verified 11/06/19 06:42 Childhood Review of Systems ROS Statement: Those systems with pertinent positive or pertinent negative responses have been documented in the HPI. ROS Other: All systems not noted in ROS Statement are negative. Past Medical History Past Medical History: Coronary Artery Disease (CAD), Cancer, Hypertension, Myocardial Infarction ([place]), Prostate Disorder, Thyroid Disorder Additional Past Medical History / Comment(s): hx thyroid cancer, skin cancer Last Myocardial Infarction Date:: History of Any Multi-Drug Resistant Organisms: None Reported Past Surgical History: Coronary Bypass/CABG Additional Past Surgical History / Comment(s): thyroid cancer removed, circumcision, kylie cataracts with lens implants, skin cancer removal Past Anesthesia/Blood Transfusion Reactions: No Reported Reaction Past Psychological History: Depression Smoking Status: Former smoker Past Alcohol Use History: None Reported Past Drug Use History: None Reported - Past Family History Mother Family Medical History: No Reported History General Exam - General Exam Comments Initial Comments: General: The patient is awake and alert, in no distress, and does not appear acutely ill. Eye: +3 mm pupils are equal, round and reactive to light, extra-ocular movements are intact. No nystagmus. There is normal conjunctiva bilaterally. No signs of icterus. Ears, nose, mouth and throat: There are moist mucous membranes and no oral lesions. Scab on tip of nose. No eye redness. No fluorescein uptake on exam. EAC and TM WNl. Neck: The neck is supple, there is no tenderness or JVD. Cardiovascular: There is a regular rate and rhythm. No murmur, rub or gallop is appreciated. Respiratory: Lungs are clear to auscultation, respirations are non-labored, breath sounds are equal. No wheezes, stridor, rales, or rhonchi. Musculoskeletal: Normal ROM, no tenderness. Strength 5/5. Sensation intact. Radial pulses equal bilaterally 2+. Neurological: A&O x 3. CN II-XII intact, There are no obvious motor or sensory deficits. Coordination appears grossly intact. Speech is normal. Skin: Skin is warm and dry and no rashes. Vesicular clust of lesions with mild erythema on the right flank, wraps around on same dermatome to the front of abdomen. Psychiatric: Cooperative, appropriate mood & affect, normal judgment. Limitations: no limitations Course Vital Signs 11/06/19 11/06/19 06:37 07:42 Temperature 98.2 F Pulse Rate 76 71 Respiratory 18 18 Rate Blood Pressure 178/99 175/87 O2 Sat by Pulse 96 97 Oximetry Medical Decision Making - Medical Decision Making 79yo two days of flank pain. Vesicular lesions along a dermatome consistent with a varicella infection. Patient does have a scab on his nose is unclear if this is a vesicular lesion he states it is not painful. There is no ocular involvement those forcing uptake. External auditory canals normal limits tympanic membrane examination within normal limits. There is no palsy of the face no focal neurological deficits. Symptoms less than 48 hours patient will be initiated on valacyclovir given ophthalmology and primary care follow-up patient is agreeable to this care plan discharge at this time.Pt evaluated by Dr. Rasmussen who is agreeable to care plan. Disposition Clinical Impression: Herpes zoster Disposition: HOME SELF-CARE Condition: Good Instructions (If sedation given, give patient instructions): Shingles (ED) Additional Instructions: Please use medication as discussed. Please follow-up with family doctor in the next 2 days, recommend outpatient eye exam. Please return to emergency room if the symptoms increase or worsen or for any other concerns. Prescriptions: valACYclovir HCL [Valacyclovir] 1,000 mg PO Q8H 7 Days #21 tab Is patient prescribed a controlled substance at d/c from ED?: No Referrals: Daniel Avila MD [Primary Care Provider] - 1-2 days Time of Disposition: 07:33
[2019-11-06 07:44] VITALS: BP 175/87; PULSE 71
== END 2019-11-06 07:45 | disposition home or self-care (01) ==
LOC: EC 06:31
DX: B02.9 Zoster without complications (principal); R23.4 Changes in skin texture; I25.10 Atherosclerotic heart disease of native coronary artery without angina pectoris; I10 Essential (primary) hypertension; I25.2 Old myocardial infarction; N42.9 Disorder of prostate, unspecified; Z85.850 Personal history of malignant neoplasm of thyroid; Z85.828 Personal history of other malignant neoplasm of skin; Z95.1 Presence of aortocoronary bypass graft; Z87.891 Personal history of nicotine dependence; Z79.890 Hormone replacement therapy; Z79.899 Other long term (current) drug therapy; Z88.0 Allergy status to penicillin
CPT/HCPCS: 99283

== ENCOUNTER 2019-11-10 11:08 | Emergency (ER) | payer MEDICARE, OTHER ==
--- NOTE | 2019-11-10 11:27 | ED ---
General Adult HPI - General Chief complaint: Fall Stated complaint: Fall Source: patient, RN notes reviewed Mode of arrival: EMS Limitations: no limitations - History of Present Illness Initial comments: 79-year-old male with a past medical history history of CAD, cancer, hypertension, [place] presents to the emergency department for mechanical fall. Patient was walking to the store when he went to step over a curb and tripped falling on his right arm. Patient does not recall if he hit his head. He denies headache. He is denying neck pain. He is unsure if he is on blood thi nners however no record of blood thinners in our history. Patient's only complaint is skin tears to the right arm and hand. Denies abdominal pain or leg pain. No loss of consciousness. No lightheadedness chest pain returns of breath preceding this fall.Patient has no other complaints at this time including shortness of breath, chest pain, abdominal pain, nausea or vomiting, headache, or visual changes. - Related Data Home Medications Medication Instructions Recorded Confirmed Finasteride [Proscar] 5 mg PO QAM 09/18/16 11/10/19 Albuterol Sulfate [Proair Hfa] 1 - 2 puff INHALATION RT-Q4H PRN 08/10/18 11/10/19 Isosorbide Mononitrate [Isosorbide 30 mg PO BID 09/26/18 11/10/19 Mononitrate ER] Lisinopril 20 mg PO QAM 09/26/18 11/10/19 Allopurinol [Zyloprim] 300 mg PO DAILY 11/06/18 11/10/19 Aspirin EC [Ecotrin Low Dose] 81 mg PO DAILY 11/10/19 11/10/19 Carvedilol [Coreg] 3.125 mg PO BID 11/10/19 11/10/19 Furosemide [Lasix] 20 mg PO DAILY 11/10/19 11/10/19 Levothyroxine Sodium [Synthroid] 112 mcg PO DAILY 11/10/19 11/10/19 Previous Rx's Medication Instructions Recorded valACYclovir HCL [Valacyclovir] 1,000 mg PO Q8H 7 Days #21 tab 11/06/19 Allergies Allergy/AdvReac Type Severity Reaction Status Date / Time amoxicillin Allergy Unknown Verified 11/10/19 11:37 Childhood Penicillins Allergy Unknown Verified 11/10/19 11:37 Childhood Review of Systems ROS Statement: Those systems with pertinent positive or pertinent negative responses have been documented in the HPI. ROS Other: All systems not noted in ROS Statement are negative. Past Medical History Past Medical History: Coronary Artery Disease (CAD), Cancer, Hypertension, Myocardial Infarction ([place]), Prostate Disorder, Thyroid Disorder Additional Past Medical History / Comment(s): hx thyroid cancer, skin cancer Last Myocardial Infarction Date:: History of Any Multi-Drug Resistant Organisms: None Reported Past Surgical History: Coronary Bypass/CABG Additional Past Surgical History / Comment(s): thyroid cancer removed, circumcision, kylie cataracts with lens implants, skin cancer removal Past Anesthesia/Blood Transfusion Reactions: No Reported Reaction Past Psychological History: Depression Smoking Status: Former smoker Past Alcohol Use History: None Reported Past Drug Use History: None Reported - Past Family History Mother Family Medical History: No Reported History General Exam Limitations: no limitations General appearance: alert, in no apparent distress Head exam: Present: atraumatic, normocephalic, normal inspection Eye exam: Present: normal appearance, PERRL, EOMI. Absent: scleral icterus, conjunctival injection, periorbital swelling ENT exam: Present: normal exam, mucous membranes moist Neck exam: Present: normal inspection, full ROM. Absent: tenderness, meningismus, lymphadenopathy Respiratory exam: Present: normal lung sounds bilaterally. Absent: respiratory distress, wheezes, rales, rhonchi, stridor Cardiovascular Exam: Present: regular rate, normal rhythm, normal heart sounds. Absent: systolic murmur, diastolic murmur, rubs, gallop, clicks GI/Abdominal exam: Present: soft, normal bowel sounds. Absent: distended, tenderness, guarding, rebound, rigid Extremities exam: Present: other (Patient has a contusion noted to the dorsum of the right wrist with small skin tear. There is also some small skin tear mid forearm and 2 other skin tears on the right dorsal hand. Full range of motion of all digits. Radial pulse 2+. There are no deep lacerations requiring suturing. There is ecchymosis from this fall.) Neurological exam: Present: alert Course Vital Signs 11/10/19 11:15 Temperature 98.1 F Pulse Rate 77 Respiratory 18 Rate Blood Pressure 146/68 O2 Sat by Pulse 98 Oximetry Medical Decision Making - Medical Decision Making 79-year-old male presents for a trip and fall today. No lightheadedness or dizziness shortness of breath or chest pain preceding this fall. It was purely mechanical. Patient does not recall hitting his head but is not completely sure that he did not. I do not see any evidence of trauma to the skull. Physical exam as documented. CT brain showed no acute intracranial abnormality. CT cervical spine shows no acute osseous lesion. Mild to moderate degenerative changes noted. X-ray of the right forearm shows no acute osseous lesion. Hematoma is noted on my review. X-ray of the right hand shows no acute fracture. I did clean the wounds thoroughly. Steri-Strips were applied to 5 small skin tears. Tetanus is updated according to patient. Patient will be discharged home to follow up with primary care. Will return for any worsening symptoms. Disposition Clinical Impression: Fall, Skin tear Disposition: HOME SELF-CARE Condition: Good Instructions (If sedation given, give patient instructions): Skin Tear (ED), Steristrips (ED) Additional Instructions: Please let Steri-Strips fall off on their own. Monitor for signs of infection such as spreading or streaking redness and return if these occur. Return if you have any other worsening symptoms. Otherwise follow-up with primary care in 1-2 days. Is patient prescribed a controlled substance at d/c from ED?: No Referrals: Daniel Avila MD [Primary Care Provider] - 1-2 days Time of Disposition: 12:25
--- NOTE | 2019-11-10 12:08 | CT ---
EXAMINATION TYPE: CT brain joão haro DATE OF EXAM: 11/10/2019 COMPARISON: Previous CT scan of the brain dated 06/24/2010. HISTORY: Fall CT DLP: 1410.4 mGycm Automated exposure control for dose reduction was used. TECHNIQUE: CT scan of the head and cervical spine are performed without contrast. FINDINGS: BRAIN: There are mild, generalized changes of sulcal prominence and ventriculomegaly compatible with mild atrophy. There is diffuse periventricular white matter lucency compatible chronic white matter i schemic change. There is no acute focal lesion, mass effect or midline shift identified. I do not see evidence of intracranial blood. There is chronic mucoperiosteal thickening involving the maxillary sinuses bilaterally. There is unde raeration of both mastoid air cells suggesting chronic mastoiditis. IMPRESSION: NO ACUTE INTRACRANIAL ABNORMALITY. CERVICAL SPINE: Visualized portions of the lungs are clear. There is moderate calcification of the ao rtic knuckle. There is calcification of the carotid bulbs bilaterally, worse on the left than the rig ht. Prevertebral soft tissues are otherwise unremarkable. Vertebral body height and alignment are maintained. Atlantoaxial relationships are maintained. There is mild disc space loss and hypertrophic spondylosis throughout the cervical spine, most marked at C6 -7. There is diffuse uncovertebral joint disease present also worse at C6-7 there is facet arthropath y on the left at C5-6 causing some degree of left-sided intervertebral foraminal narrowing. No defini te protrusion is seen. No fracture is identified. IMPRESSION: 1. NO ACUTE OSSEOUS LESION. 2. MILD TO MODERATE DEGENERATIVE CHANGE.
--- NOTE | 2019-11-10 12:13 | XR ---
EXAMINATION TYPE: XR hand complete RT , 3 VIEWS DATE OF EXAM ORDERED: 11/10/2019 HISTORY: pain. COMPARISON: None. FINDINGS: No fracture, dislocation or other acute osseous lesion is seen. There are degenerative sree nges in the triscaphe joint. IMPRESSION: 1. NO ACUTE OSSEOUS LESION. 2. DEGENERATIVE CHANGE.
--- NOTE | 2019-11-10 12:14 | XR ---
EXAMINATION TYPE: XR forearm RT , 3 VIEWS DATE OF EXAM ORDERED: 11/10/2019 HISTORY: pain. COMPARISON: None. FINDINGS: No fracture, dislocation or elbow joint effusion is seen. IMPRESSION: NO ACUTE OSSEOUS LESION.
[2019-11-10 12:40] VITALS: BP 141/74; PULSE 79; RESP 16; TEMP 98
== END 2019-11-10 12:39 | disposition home or self-care (01) ==
LOC: EC 11:08
DX: S41.111A Laceration without foreign body of right upper arm, initial encounter (principal); M47.812 Spondylosis without myelopathy or radiculopathy, cervical region; I25.10 Atherosclerotic heart disease of native coronary artery without angina pectoris; I10 Essential (primary) hypertension; I25.2 Old myocardial infarction; E07.9 Disorder of thyroid, unspecified; Z79.82 Long term (current) use of aspirin; Z79.899 Other long term (current) drug therapy; Z85.850 Personal history of malignant neoplasm of thyroid; Z88.0 Allergy status to penicillin; Z85.828 Personal history of other malignant neoplasm of skin; Z95.1 Presence of aortocoronary bypass graft; Z98.890 Other specified postprocedural states; Z87.891 Personal history of nicotine dependence; W01.0XXA Fall on same level from slipping, tripping and stumbling without subsequent striking against object, initial encounter; Y93.01 Activity, walking, marching and hiking; Y92.89 Other specified places as the place of occurrence of the external cause
CPT/HCPCS: 70450; 72125; 99284

== ENCOUNTER 2019-11-10 16:02 | Emergency (ER) | payer MEDICARE, OTHER ==
[2019-11-10 16:13] VITALS: BP 173/91; PULSE 73; RESP 16; TEMP 97.2
--- NOTE | 2019-11-10 17:23 | XR ---
EXAMINATION TYPE: XR ribs RT w pa chest xray DATE OF EXAM: 11/10/2019 COMPARISON: Chest x-ray 08/23/2018 HISTORY: Right lower rib pain, fall TECHNIQUE: Right ribs are examined in 2 views. This exam is supplemented with a chest x-ray. FINDINGS: Bibasilar linear opacities are present likely on the basis of atelectasis. Some underlying scarring could be considered. The heart size is normal. No pneumothorax is evident. Right ribs appear intact. No displaced fractures are identified. IMPRESSION: 1. No acute displaced right rib fractures. Follow-up can be performed as clinically indicated.
--- NOTE | 2019-11-10 17:40 | ED ---
General Adult HPI - General Chief complaint: Wound/Laceration Stated complaint: Revisit Skin Tear Time Seen by Provider: 11/10/19 16:17 Source: patient, RN notes reviewed Mode of arrival: wheelchair Limitations: no limitations - History of Present Illness Initial comments: 79-year-old male with a past medical history of CAD, cancer, hypertension, [place], prostate disorder presents to the emergency department he has Steri-Strips or falling off. Patient had a fall that was mechanical earlier today and to the right arm. X-rays were negative at that time and Steri-Strip was applied to the skin tears. Patient reports that these are coming off. Patient also has noticed some right anterior lower rib tenderness that he is concerned about. It hurts when he presses on this area. Denies any back pain. Denies any other injuries or any other pains he has noticed.Patient has no other complaints at this time including shortness of breath, chest pain, abdominal pain, nausea or vomiting, headache, or visual changes. - Related Data Home Medications Medication Instructions Recorded Confirmed Finasteride [Proscar] 5 mg PO QAM 09/18/16 11/10/19 Albuterol Sulfate [Proair Hfa] 1 - 2 puff INHALATION RT-Q4H PRN 08/10/18 11/10/19 Isosorbide Mononitrate [Isosorbide 30 mg PO BID 09/26/18 11/10/19 Mononitrate ER] Lisinopril 20 mg PO QAM 09/26/18 11/10/19 Allopurinol [Zyloprim] 300 mg PO DAILY 11/06/18 11/10/19 Aspirin EC [Ecotrin Low Dose] 81 mg PO DAILY 11/10/19 11/10/19 Carvedilol [Coreg] 3.125 mg PO BID 11/10/19 11/10/19 Furosemide [Lasix] 20 mg PO DAILY 11/10/19 11/10/19 Levothyroxine Sodium [Synthroid] 112 mcg PO DAILY 11/10/19 11/10/19 Previous Rx's Medication Instructions Recorded valACYclovir HCL [Valacyclovir] 1,000 mg PO Q8H 7 Days #21 tab 11/06/19 Allergies Allergy/AdvReac Type Severity Reaction Status Date / Time amoxicillin Allergy Unknown Verified 11/10/19 16:12 Childhood Penicillins Allergy Unknown Verified 11/10/19 16:12 Childhood Review of Systems ROS Statement: Those systems with pertinent positive or pertinent negative responses have been documented in the HPI. ROS Other: All systems not noted in ROS Statement are negative. Past Medical History Past Medical History: Coronary Artery Disease (CAD), Cancer, Hypertension, Myocardial Infarction ([place]), Prostate Disorder, Thyroid Disorder Additional Past Medical History / Comment(s): hx thyroid cancer, skin cancer Last Myocardial Infarction Date:: History of Any Multi-Drug Resistant Organisms: None Reported Past Surgical History: Coronary Bypass/CABG Additional Past Surgical History / Comment(s): thyroid cancer removed, circumcision, kylie cataracts with lens implants, skin cancer removal Past Anesthesia/Blood Transfusion Reactions: No Reported Reaction Past Psychological History: Depression Smoking Status: Former smoker Past Alcohol Use History: None Reported Past Drug Use History: None Reported - Past Family History Mother Family Medical History: No Reported History General Exam Limitations: no limitations General appearance: alert, in no apparent distress Head exam: Present: atraumatic, normocephalic, normal inspection Eye exam: Present: normal appearance, PERRL, EOMI. Absent: scleral icterus, conjunctival injection ENT exam: Present: normal exam, mucous membranes moist Neck exam: Present: normal inspection, full ROM. Absent: tenderness, meningismus, lymphadenopathy Respiratory exam: Present: normal lung sounds bilaterally, chest wall tenderness (Patient has left anterior chest wall tenderness below the breast area around T6). Absent: respiratory distress, wheezes, rales, rhonchi, stridor, other (No ecchymosis or contusions noted to the anterior chest. No tenting.) Cardiovascular Exam: Present: regular rate, normal rhythm, normal heart sounds. Absent: systolic murmur, diastolic murmur, rubs, gallop, clicks GI/Abdominal exam: Present: soft, normal bowel sounds. Absent: distended, tenderness, guarding, rebound, rigid Back exam: Absent: CVA tenderness (R), CVA tenderness (L) Neurological exam: Present: alert Course Vital Signs 11/10/19 16:08 Temperature 97.2 F L Pulse Rate 73 Respiratory 16 Rate Blood Pressure 173/91 O2 Sat by Pulse 97 Oximetry Medical Decision Making - Medical Decision Making Wounds were redressed. There was some slight bleeding which had caused Steri- Strips to peel. New Steri-Strips are then wrapped with gauze to prevent this and apply pressure. Again there are only skin tears no lacerations requiring suturing. X-ray of the chest and ribs were negative without evidence for acute displaced rib fracture. Patient likely has rib contusion. Discussed taking 10 deep breaths per hour to prevent any pneumonias from occurring. Discussed returning if he has any worsening symptoms including increased pain or fever with cough. Disposition Clinical Impression: Laceration Disposition: HOME SELF-CARE Condition: Good Instructions (If sedation given, give patient instructions): Steristrips (ED) Additional Instructions: Please take Tylenol for pain. Take 10 deep breaths an hour to prevent pneu monia. Take off dressings in 24 hours and let Steri-Strips fall off on their own Follow-up with primary care in 1-2 days. Return to the emergency room if you have any worsening symptoms such as worsening pain or you develop cough with fever in the next couple weeks. Is patient prescribed a controlled substance at d/c from ED?: No Referrals: Daniel Avila MD [Primary Care Provider] - 1-2 days Time of Disposition: 17:38
== END 2019-11-10 18:05 | disposition home or self-care (01) ==
LOC: EC 16:02
DX: S41.111A Laceration without foreign body of right upper arm, initial encounter (principal); R07.89 Other chest pain; I10 Essential (primary) hypertension; I25.10 Atherosclerotic heart disease of native coronary artery without angina pectoris; I25.2 Old myocardial infarction; Z79.82 Long term (current) use of aspirin; Z79.890 Hormone replacement therapy; Z79.899 Other long term (current) drug therapy; Z87.891 Personal history of nicotine dependence; Z88.0 Allergy status to penicillin; Z85.828 Personal history of other malignant neoplasm of skin; Z85.850 Personal history of malignant neoplasm of thyroid; Z95.1 Presence of aortocoronary bypass graft; W19.XXXA Unspecified fall, initial encounter
CPT/HCPCS: 99283

== ENCOUNTER 2019-11-11 10:50 | Emergency (ER) | payer MEDICARE, OTHER ==
[2019-11-11 10:57] VITALS: BP 131/78; PULSE 87; RESP 18; TEMP 97.9
--- NOTE | 2019-11-11 11:34 | ED ---
Recheck HPI - General Chief Complaint: Recheck/Abnormal Lab/Rx Stated Complaint: recheck - wants arm rewrapped Time Seen by Provider: 11/11/19 11:06 Source: patient Mode of arrival: ambulatory Limitations: no limitations - History of Present Illness Initial Comments: Patient is a 79-year-old male presenting to the emergency department for a recheck of his wound on his right arm. Patient fell 2 days ago and has skin tears on his right forearm. He states he cannot change his bandage at home and is requesting a bandage changed today. He denies any further complaints or falls. Denies fever or chills. He has no other complaints at this time. - Related Data Home Medications Medication Instructions Recorded Confirmed Finasteride [Proscar] 5 mg PO QAM 09/18/16 11/10/19 Albuterol Sulfate [Proair Hfa] 1 - 2 puff INHALATION RT-Q4H PRN 08/10/18 11/10/19 Isosorbide Mononitrate [Isosorbide 30 mg PO BID 09/26/18 11/10/19 Mononitrate ER] Lisinopril 20 mg PO QAM 09/26/18 11/10/19 Allopurinol [Zyloprim] 300 mg PO DAILY 11/06/18 11/10/19 Aspirin EC [Ecotrin Low Dose] 81 mg PO DAILY 11/10/19 11/10/19 Carvedilol [Coreg] 3.125 mg PO BID 11/10/19 11/10/19 Furosemide [Lasix] 20 mg PO DAILY 11/10/19 11/10/19 Levothyroxine Sodium [Synthroid] 112 mcg PO DAILY 11/10/19 11/10/19 Previous Rx's Medication Instructions Recorded valACYclovir HCL [Valacyclovir] 1,000 mg PO Q8H 7 Days #21 tab 11/06/19 Allergies Allergy/AdvReac Type Severity Reaction Status Date / Time amoxicillin Allergy Unknown Verified 11/10/19 16:12 Childhood Penicillins Allergy Unknown Verified 11/10/19 16:12 Childhood Review of Systems ROS Statement: Those systems with pertinent positive or pertinent negative responses have been documented in the HPI. ROS Other: All systems not noted in ROS Statement are negative. Past Medical History Past Medical History: Coronary Artery Disease (CAD), Cancer, Hypertension, Myocardial Infarction ([place]), Prostate Disorder, Thyroid Disorder Additional Past Medical History / Comment(s): hx thyroid cancer, skin cancer Last Myocardial Infarction Date:: History of Any Multi-Drug Resistant Organisms: None Reported Past Surgical History: Coronary Bypass/CABG Additional Past Surgical History / Comment(s): thyroid cancer removed, circumcision, kylie cataracts with lens implants, skin cancer removal Past Anesthesia/Blood Transfusion Reactions: No Reported Reaction Past Psychological History: Depression Smoking Status: Former smoker Past Alcohol Use History: None Reported Past Drug Use History: None Reported - Past Family History Mother Family Medical History: No Reported History General Exam - General Exam Comments Initial Comments: GENERAL: Well-appearing, well-nourished and in no acute distress. HEAD: Atraumatic, normocephalic. EYES: Pupils equal round and reactive to light, extraocular movements intact, sclera anicteric, conjunctiva are normal. ENT: TMs normal, nares patent, oropharynx clear without exudates. Moist mucous membranes. NECK: Normal range of motion, supple without lymphadenopathy or JVD. LUNGS: Breath sounds clear to auscultation bilaterally and equal. No wheezes rales or rhonchi. HEART: Regular rate and rhythm without murmurs, rubs or gallops. ABDOMEN: Soft, nontender, normoactive bowel sounds. No guarding, no rebound. No masses appreciated. : Deferred EXTREMITIES: Patient has bruising and mild pain of his right forearm, right wrist from recent fall. No clubbing or cyanosis. NEUROLOGICAL: Normal speech, normal gait. PSYCH: Normal mood, normal affect. SKIN: Warm, Dry, normal turgor. Patient has 3 minor skin tears to the right forearm, all are healing well. No signs of infection at this time. Limitations: no limitations Course Vital Signs 11/11/19 10:52 Temperature 97.9 F Pulse Rate 87 Respiratory 18 Rate Blood Pressure 131/78 O2 Sat by Pulse 96 Oximetry Medical Decision Making - Medical Decision Making Patient is an 79-year-old male here for a dressing change of 3 skin tears in his right forearm that happened 2 days ago. Patient states he is unable to do this himself. The wounds were cleaned, redressed with Steri-Strips and a bandage. Patient is stable for discharge. He does have an appointment with his PCP on Monday and he will leave bandages in place until then. Patient is in agreement with this plan of care. Return parameters were discussed with the patient and he verbalized understanding. Case discussed with Dr. Cunha. Disposition Clinical Impression: Skin tear, Dressing change Disposition: HOME SELF-CARE Condition: Stable Instructions (If sedation given, give patient instructions): Acute Wound Care (ED) Additional Instructions: Please return to the Emergency Department if symptoms worsen or any other concerns. Follow-up with your PCP on Monday as discussed. Keep dressing clean and dry until then. Is patient prescribed a controlled substance at d/c from ED?: No Referrals: Daniel Avila MD [Primary Care Provider] - 1-2 days
== END 2019-11-11 11:45 | disposition home or self-care (01) ==
LOC: EC 10:50
DX: S51.811D Laceration without foreign body of right forearm, subsequent encounter (principal); I25.10 Atherosclerotic heart disease of native coronary artery without angina pectoris; I10 Essential (primary) hypertension; I25.2 Old myocardial infarction; E07.9 Disorder of thyroid, unspecified; N42.9 Disorder of prostate, unspecified; Z88.0 Allergy status to penicillin; Z79.82 Long term (current) use of aspirin; Z79.890 Hormone replacement therapy; Z79.899 Other long term (current) drug therapy; Z85.828 Personal history of other malignant neoplasm of skin; Z85.850 Personal history of malignant neoplasm of thyroid; Z87.891 Personal history of nicotine dependence; Z98.42 Cataract extraction status, left eye; Z98.41 Cataract extraction status, right eye; Z96.1 Presence of intraocular lens; Z95.1 Presence of aortocoronary bypass graft
CPT/HCPCS: 99282